=== PATIENT | female | born 1955 | race Caucasian/White ===

== ENCOUNTER 2017-02-15 18:04 | Observation (INO) ==
[2017-02-15] MEDS ORDERED: 0.9 % Sodium Chloride 1,000 ML IVC ONE (18:09)
--- NOTE | 2017-02-15 18:14 | Emergency Department Note ---
Disposition Clinical Impression: Syncope Disposition: Still a Patient Condition: Good Referrals: Latosha Wells MD [Primary Care Provider] - Forms: ED Satisfaction Letter General Adult HPI - General Chief complaint: ED Syncope Stated complaint: syncopal episode Time Seen by Provider: 02/15/17 18:08 Source: patient, EMS Limitations: no limitations Nursing Notes Reviewed: Yes Vital Signs Reviewed: Yes - History of Present Illness Pain Scale: 5 - Related Data Previous Rx's Medication Instructions Recorded Amoxicillin/Clavulanate [Augmentin] 875 mg PO BIDWM #14 tablet 09/11/15 Allergies Allergy/AdvReac Type Severity Reaction Status Date / Time morphine Allergy Hives Verified 09/11/15 14:09 naproxen [From Naprosyn] Allergy Nausea Verified 09/11/15 14:09 ivp dye Allergy Itching Uncoded 09/11/15 14:09 Past Medical History - Past Medical History Medical history: Reports: diabetes, other - Social History Smoking Status: Current every day smoker Smokeless Tobacco Status: No Alcohol use: Reports: none Drug use: Reports: none Physical Exam - General Limitations: no limitations General appearance: in no apparent distress, lethargic Course Vital Signs Temperature 98.2 F 02/15/17 18:06 Pulse Rate 86 02/15/17 18:06 Respiratory Rate 18 02/15/17 18:06 Blood Pressure 140/83 02/15/17 18:06 O2 Sat by Pulse Oximetry 96 02/15/17 18:06 Temperature 98.2 F 02/15/17 18:06 Pulse Rate 80 02/15/17 18:13 Respiratory Rate 18 02/15/17 18:13 Blood Pressure 140/83 02/15/17 18:13 O2 Sat by Pulse Oximetry 97 02/15/17 18:13 Oxygen Delivery Oxygen Delivery Room Air Medical Decision Making - MDM Narrative Medical decision making narrative: I examined this patient and my medical decision-making was reviewed with the ORGANIZATIONAL DEVELOPMENT CONSULTANT/PA/Advanced Practice Nurse/Resident Physician. I agree with the documented findings, disposition and treatment plan as described except to the extent set forth below. Patient was seen on arrival with EMS and Dr. Mauricio, I agree with his evaluation and management plan, supervised the care of the patient throughout the stay. Patient was out mowing the lawn today. She says she felt fine. This 84 degrees outside. She felt a little hot. She was syncopal episode. Family estimates she was down less than 15 minutes. She denies any weakness. She denies striking her head. She was in the grass when it occurred. She denies any chest pain. She says just generally she feels weak but no focal deficits GCS is 14 she is alert person [address] and time good upper and lower motor strength. This does not appear to be a stroke and is not a stroke alert at this time. A CT her head check lab work on her. Fluids and reassessed. She is in agreement with this plan. We will sign her out to the evening your physician Dr. Colon for further management and disposition. 1811 hrs.: EKG shows a sinus rhythm with a rate of 80, QRS is 85, QTc 413, no signs of ischemia, flip complexes in lead 3 with flattening in aVF, compared this with an EKG done in 2006 shows no changes except for rate. And the complexes were upright in lead 3.
--- NOTE | 2017-02-15 18:27 | Emergency Department Note ---
Disposition Clinical Impression: Syncope Qualifiers: Syncope type: unspecified Qualified Code(s): R55 - Syncope and collapse Disposition: Still a Patient Condition: Good Referrals: Latosha Wells MD [Primary Care Provider] - Forms: ED Satisfaction Letter Time of Disposition: 18:39 Syncope HPI - General Chief Complaint: ED Syncope Stated Complaint: syncopal episode Time Seen by Provider: 02/15/17 18:08 Source: patient, EMS Mode of arrival: ambulatory Limitations: no limitations Nursing Notes Reviewed: Yes Vital Signs Reviewed: Yes - History of Present Illness HPI Narrative: Patient is a 61-year-old female with past medical history of diabetes. She presents today due to an episode of syncope just prior to arrival. Family members are present with her and state that she has been outside all day, doing different task, he was mowing the lawn an then about 20 minutes after mowing the lawn, she was walking with her son and stated that she felt sick. Son states that she then collapsed, he caught her before she hit the ground. He denies her hitting her neck or head. She was "out and confused" for approximately 20 minutes per son. The patient herself says that she feels confused. She denies any numbness, tingling, weakness. She does admit to some mild neck pain but denies hitting her head or neck. Denies any other injuries. Denies chest pain, shortness of breath, nausea, vomiting, fevers, diarrhea, abdominal pain. She says she drank some water but "maybe not enough." - Related Data Previous Rx's Medication Instructions Recorded Amoxicillin/Clavulanate [Augmentin] 875 mg PO BIDWM #14 tablet 09/11/15 Allergies Allergy/AdvReac Type Severity Reaction Status Date / Time morphine Allergy Hives Verified 09/11/15 14:09 naproxen [From Naprosyn] Allergy Nausea Verified 09/11/15 14:09 ivp dye Allergy Itching Uncoded 09/11/15 14:09 All systems ED: reviewed and negative except as stated. Constitutional: Denies: fever Cardiovascular: Denies: chest pain, palpitations Respiratory: Denies: cough, dyspnea, wheezes Gastrointestinal: Denies: abdominal pain, nausea, vomiting, diarrhea Genitourinary: Denies: urgency, dysuria, frequency Musculoskeletal: Reports: neck pain. Denies: back pain, arthralgia, myalgia Integumentary: Denies: rash Neurological: Reports: other (syncope). Denies: headache, weakness, numbness, paresthesias Past Medical History - Past Medical History Attestation: Yes The following information was validated with the patient. Source: patient Medical history: Reports: diabetes, other - Social History Smoking Status: Current every day smoker Smokeless Tobacco Status: No Alcohol use: Reports: none Drug use: Reports: none Physical Exam - General Limitations: no limitations General appearance: in no apparent distress, other (listless) - Head Head exam: atraumatic, normocephalic, normal inspection - Eye Eye exam: Present: normal appearance, PERRL, EOMI - ENT ENT exam: mucous membranes dry - Neck Neck exam: Present: normal inspection, full ROM, trachea midline, tenderness ( mild tenderness of spinous processes and paraspinal muscles C3-C5 ) - Chest Chest inspection: Present: normal inspection, symmetric chest wall rise - Respiratory Respiratory exam: Present: normal lung sounds bilaterally. Absent: respiratory distress, wheezes - Cardiovascular Cardiovascular exam: Present: regular rate, normal rhythm, normal heart sounds - Abdominal Exam Abdominal exam: Present: soft, Non-Tender. Absent: tenderness, distention, guarding, rebound, rigidity - Extremities Exam Extremities exam: Present: normal inspection, full ROM. Absent: tenderness, pedal edema - Neurological Exam Neurological exam: Present: alert, oriented X3, CN II-XII intact. Absent: motor sensory deficit - Psychiatric Psychiatric exam: Present: normal mood, flat affect, other (mildly confused on exam) - Skin Skin exam: Present: warm, dry, intact, normal color Course Course Narrative: Patient vitals within normal limits my exam. Physical exam shows groggy patient , slow to answer questions. She has no focal neurologic deficits on exam. She does have some mild tenderness of the paraspinal muscles and spinous processes of C3-C5. No other injuries noted on exam. We will obtain altered mental status workup for the patient including a head CT and CT of the cervical spine. We will give fluids. Current concern for heat exhaustion/heat stroke but must also consider cardiac etiology. Will obtain trop and CXR, EKG. Patient signed out to night team, Dr. Colon, Dr. Freeman, Dr. Guevara for further care and dispo. Vital Signs Temperature 98.2 F 02/15/17 18:06 Pulse Rate 86 02/15/17 18:06 Respiratory Rate 18 02/15/17 18:06 Blood Pressure 140/83 02/15/17 18:06 O2 Sat by Pulse Oximetry 96 02/15/17 18:06 Temperature 98.2 F 02/15/17 18:06 Pulse Rate 80 02/15/17 18:13 Respiratory Rate 18 02/15/17 18:13 Blood Pressure 140/83 02/15/17 18:13 O2 Sat by Pulse Oximetry 97 02/15/17 18:13 Oxygen Delivery Oxygen Delivery Room Air Syncope - MDM Narrative Medical decision making narrative: Patient vitals within normal limits my exam. Physical exam shows groggy patient , slow to answer questions. She has no focal neurologic deficits on exam. She does have some mild tenderness of the paraspinal muscles and spinous processes of C3-C5. No other injuries noted on exam. We will obtain altered mental status workup for the patient including a head CT and CT of the cervical spine. We will give fluids. Current concern for heat exhaustion/heat stroke but must also consider cardiac etiology. Will obtain trop and CXR, EKG. Patient signed out to night team, Dr. Colon, Dr. Freeman, Dr. Guevara for further care and dispo. - Medical Records Medical records reviewed: Yes I reviewed the patient's medical records. S.BKarl - S.[email or web address].AFabi Situation: Demographics, MOA Background: Presenting Complaint, Relevant PMH, Meds, & Allergies Assessment: Vital Signs, Course and respsone to treatment, Exam Concerns, Patient/Family Expectation, Pertinant Lab Results, Outstanding Labs Recommendation: Barrier(s) to disposition, Recommendation based on pending studies, treatments, or consults S.B.Al Report Given to: Dr. Colon, Dr. Freeman S.Jeff Repor Time: 18:44
[2017-02-15 18:54] LABS: Basophils % 0.4 %; Eosinophils # 0.1 K/mcL (0.0-0.6); Eosinophils % 2.1 %; Hematocrit 34.3 % (35.3-44.9); Hemoglobin 11.4 g/dL (11.5-15.4); Immature Granulocytes % 0.4 % (0-4); Immature Platelets 9.1 % (1.1-6.1); Lymphocytes # 0.4 K/mcL (0.6-4.6); Lymphocytes % 15.5 %; Mean Corpuscular HGB Conc 33.2 g/dL (31.6-35.5); Mean Corpuscular Hemoglobin 30.2 pg (28.0-33.3); Mean Corpuscular Volume 90.7 fL (83.0-100.0); Monocytes # 0.1 K/mcL (0.0-1.3); Monocytes % 4.6 %; Red Blood Count 3.78 M/mcL (3.82-4.97); Red Cell Distribution Width 12.4 % (11.5-14.5)
[2017-02-15 18:56] LABS: Neutrophils # 1.9 K/mcL (1.6-8.9); Platelet Count 53 K/mcL (140-400)
[2017-02-15 19:08] LABS: Alanine Aminotransferase 25 Units/L (0-55); Albumin 3.4 g/dL (3.5-5.0); Albumin/Globulin Ratio 1.1 (1.1-2.2); Alkaline Phosphatase 60 Units/L (38-126); Aspartate Amino Transferase 33 Units/L (5-34); BUN/Creatinine Ratio 15 (6-26); Bilirubin,Total 1.8 mg/dL (0.2-1.2); Blood Urea Nitrogen 13 mg/dL (7-20); Calcium 8.9 mg/dL (8.6-10.8); Carbon Dioxide 25 mEq/L (19-29); Chloride 106 mEq/L (98-109); Globulin 3.2 g/dL (2.4-3.5); Glucose 248 mg/dL (70-99); Osmolality,Calculated 292 (280-300); Potassium 3.8 mEq/L (3.5-4.5); Sodium 137 mEq/L (136-145); Total Protein 6.6 g/dL (6.0-8.3); eGFR For African Americans > 60 (> 60); eGFR For Non-African Americans > 60 (> 60)
[2017-02-15 19:09] LABS: Ethanol < 10 mg/dL (0-10)
[2017-02-15 19:18] LABS: Platelet Estimate Decreased (Normal)
[2017-02-15 19:37] LABS: Bilirubin,Urine Negative (Negative); Blood,Urine Small (Negative); Clarity,Urine Clear (Clear); Color,Urine Yellow (Yellow); Glucose,Urine (UA) >=1000 mg/dL (Normal); Ketones,Urine Negative (Negative); Leukocyte Esterase,Urine Negative (Negative); Nitrite,Urine Negative (Negative); Protein,Urine Negative (Neg-Trace); Specific Gravity,Urine 1.017 (1.010-1.025); Urobilinogen,Urine Normal (Normal)
[2017-02-15 19:42] LABS: Bacteria,Urine None Seen per hpf (None-Few); Hyaline Casts,Urine None Seen per lpf (None-Few); RBC,Urine 0-3 per hpf (0-3); Squamous Epithelial Cell,Urine Many per lpf (None-Few); WBC,Urine 0-3 per hpf (0-3)
[2017-02-15 19:44] LABS: Amphetamine Screen,Urine Negative ng/mL (Cutoff=1000); Barbiturate Screen,Urine Negative ng/mL (Cutoff=200); Benzodiazepines Screen,Urine Negative ng/mL (Cutoff=200); Cannabinoid Screen,Urine Negative ng/mL (Cutoff = 50); Cocaine Screen,Urine Negative ng/mL (Cutoff= 300); Opiate Screen,Urine Negative ng/mL (Cutoff=300); Phencyclidine Screen,Urine Negative ng/mL (Cutoff=25)
[2017-02-15] MEDS ORDERED: Acetaminophen 325 MG TABLET PO PRN (20:43)
[2017-02-15] MEDS ORDERED: Dextrose Gel 15 GM PO PRN ×2 (20:43)
[2017-02-15] MEDS ORDERED: D5% in Water 1,000 ML IVC PRN (20:43)
[2017-02-15] MEDS ORDERED: Ondansetron 4 MG/2 ML VIAL IVP PRN (20:43)
[2017-02-15] MEDS ORDERED: *HR* Dextrose 50 % in Water (Syg) 50 ML SYRINGE IVP PRN (20:43)
[2017-02-15] MEDS ORDERED: Naloxone 0.4 MG/ML INJ IVP PRN (20:43)
[2017-02-15] MEDS ORDERED: 0.9 % Sodium Chloride 1,000 ML IVC SCH (20:45)
--- NOTE | 2017-02-15 20:49 | Internal Med History&Physical ---
Date of Encounter: 02/15/17 Time of Encounter: 20:47 Assessment and Plan (1) Syncope Current visit: Yes Status: Acute Syncopal episode of unclear etiology, consider dehydration and possible orthostatic hypotension Check orthostatics, fall precautions, continue telemetry Order an echocardiogram, confusion final reports of CT scan of the head and neck in order and MRI as she has a persistent vertigo and nystagmus Continue IV fluids and meclizine as needed Qualifiers: Syncope type: heat syncope Encounter type: initial encounter Qualified Code(s): T67.1XXA - Heat syncope, initial encounter (2) Cirrhosis Current visit: Yes Status: Acute Unclear etiology Resume lactulose, check ammonia level Qualifiers: Hepatic cirrhosis type: unspecified hepatic cirrhosis Ascites presence: without ascites Qualified Code(s): K74.60 - Unspecified cirrhosis of liver (3) Fungal dermatitis Current visit: Yes Status: Acute Left hand fingers show multiple excoriations Start nystatin cream (4) Chronic leukopenia Current visit: Yes Status: Acute Likely secondary to cirrhosis (5) Thrombocytopenia Current visit: Yes Status: Acute Likely secondary to cirrhosis (6) Diabetes Current visit: Yes Status: Acute Continue insulin sliding scale Confirm oral medications Famotidine for GI prophylaxis and sequential compression devices for DVT prophylaxis. Patient will be admitted for observation. She is a full code. Time spent on this admission 45 minutes. High risk for falling Qualifiers: Diabetes mellitus type: type 2 Diabetes mellitus complication status: without complication Diabetes mellitus senior care insulin use: without senior care use Qualified Code(s): E11.9 - Type 2 diabetes mellitus without complications Internal Medicine - H&P: HPI Chief complaint: Syncopal episode Admitted From: Emergency Dept History of present illness: Ms. Marsh is a 61 year old female with a past medical history of diabetes type 2 not insulin-dependent, cirrhosis, hypertension and hyperlipidemia who came to the emergency room after she collapsed while being outside of her home. The episode was witnessed by her son and the form what they are describing she was confused for about 20 minutes. Prior to these event he was feeling sick and easy denies any nausea or vomiting but complains of a bad pressure type of headache. They are performed a CT scan of the brain that apparently does not show any hemorrhage but the final report of the CT scan of the head and neck are not back yet. White blood cell count is 2.4 and platelets are 53 which both are chronically low likely secondary to cirrhosis. Blood pressure was 140/83. Orthostatics have not been done. She says that her step grandson has been sick with a stomach virus since last week. UA was unremarkable and she denies any dysuria. She complains of persistent dizziness and headache. Denies any fevers. Had a normal stress test in 01/27/2017. Her left fingers have been progressively getting worse over the past few days showing excoriations for which she received prednisone initially. She says she takes lactulose regularly and she is on 3 different oral diabetes medications and does not use any insulin. Past Med Surg Social Fam HX - Past Medical History Medical history: diabetes (Not insulin-dependent), other (Hypertension, hyperlipidemia, remote history of tobacco, cirrhosis with portal vein hypertension) - Past Surgical History Surgical History: cholecystectomy, other (Right hip surgery) - Social History Smoking Status: Former smoker Smokeless Tobacco Status: No Alcohol use: none Drug use: none - Additional Family History Additional family history: Mother with CVA, cervical cancer, CAD, father with CAD Internal Medicine - H&P: Meds Amoxicillin/Clavulanate [Augmentin] 875 mg PO BIDWM #14 tablet 09/11/15 [Rx] Allergies morphine Allergy (Verified 09/11/15 14:09) Hives naproxen [From Naprosyn] Allergy (Verified 09/11/15 14:09) Nausea ivp dye Allergy (Uncoded 09/11/15 14:09) Itching All Systems PM: A 10-system review of systems was performed and is negative for pertinent findings except as documented above in the HPI. Review of systems: Feels dizzy, complains of severe headache and pressure-like 8 out of 10. Knows any abdominal pain, no dysuria. Other systems out of the 10 reviewed are negative - Constitutional Vitals: Temp Pulse Resp BP Pulse Ox 98.2 F 84 12 151/91 98 02/15/17 18:06 02/15/17 20:26 02/15/17 20:26 02/15/17 20:26 02/15/17 20:26 General appearance: Present: A&O X 3 - Head Head exam: Present: atraumatic, normocephalic Additional comments: Nystagmus present - Eye Eye exam: Present: PERRL, conjuntiva pink, sclera anicteric Pupils: Present: PERRL - Neck Neck exam general surgery: Present: supple, trachea midline. Absent: lymphadenopathy - Respiratory Respiratory exam: Present: CTAB. Absent: accessory muscle use, rales, rhonchi, wheezes - Cardiovascular Cardiovascular exam: Present: RRR, +S1, +S2. Absent: diastolic murmur, gallop, rubs, systolic murmur - GI/Abdominal GI/Abdominal exam: Present: normal bowel sounds, soft, no peritoneal signs. Absent: distended, tenderness - Extremities Exam Extremities exam: Present: warm, radial pulses palpable and symetrical. Absent : calf tenderness, cyanotic, pedal edema - Neurological Exam Neurological exam: Present: CN II-XII intact, oriented X3, no focal deficits. Absent: pronater drift, facial droop, speech deficit - Skin Skin exam: Present: dry, intact Internal Med - H&P Results - Labs CBC & Chem 7: 02/15/17 18:44 02/15/17 18:44 Labs: Short CBC 02/15/17 Range/Units 18:44 WBC 2.4 L (4.3-11.1) K/mcL Hgb 11.4 L (11.5-15.4) g/dL Hct 34.3 L (35.3-44.9) % Plt Count 53 L (140-400) K/mcL Neutrophils # 1.9 (1.6-8.9) K/mcL BMP 02/15/17 18:44 Sodium 137 Potassium 3.8 Chloride 106 Carbon Dioxide 25 BUN 13 Creatinine 0.87 Glucose 248 H Calcium 8.9 Cardiac Enzymes 02/15/17 Range/Units 18:44 Troponin I 0.00 (0-0.03) ng/mL Liver Function 02/15/17 Range/Units 18:44 Total Bilirubin 1.8 H (0.2-1.2) mg/dL AST 33 (5-34) Units/L ALT 25 (0-55) Units/L Alkaline Phosphatase 60 (38-126) Units/L Albumin 3.4 L (3.5-5.0) g/dL Urine 02/15/17 Range/Units 19:32 Urine Color Yellow (Yellow) Urine Clarity Clear (Clear) Urine pH 6.0 (5.0-8.0) pH Units Ur Specific Crosby 1.017 (1.010-1.025) Urine Protein Negative (Neg-Trace) mg/dL Urine Glucose (UA) >=1000 H (Normal) mg/dL - Impressions ITS Impressions Chest X-Ray 02/15/17 18:08 IMPRESSION: No acute findings D/ / Madisyn Last MD / Madisyn Last MD Interpreting Provider: Madisyn Last MD
--- NOTE | 2017-02-15 20:49 | Emergency Department Note ---
Disposition Clinical Impression: Syncope Qualifiers: Syncope type: heat syncope Encounter type: initial encounter Qualified Code(s) : T67.1XXA - Heat syncope, initial encounter Disposition: Admitted As Inpatient Condition: Good Referrals: Latosha Wells MD [Primary Care Provider] - Forms: ED Satisfaction Letter Time of Disposition: 20:53 General Adult HPI - General Chief complaint: ED Syncope Stated complaint: syncopal episode Time Seen by Provider: 02/15/17 18:08 Source: patient, EMS Mode of arrival: ambulatory Limitations: no limitations - History of Present Illness Pain Scale: 5 - Related Data Previous Rx's Medication Instructions Recorded Amoxicillin/Clavulanate [Augmentin] 875 mg PO BIDWM #14 tablet 09/11/15 Allergies Allergy/AdvReac Type Severity Reaction Status Date / Time morphine Allergy Hives Verified 09/11/15 14:09 naproxen [From Naprosyn] Allergy Nausea Verified 09/11/15 14:09 ivp dye Allergy Itching Uncoded 09/11/15 14:09 Constitutional: Denies: fever Cardiovascular: Denies: chest pain, palpitations Respiratory: Denies: cough, dyspnea, wheezes Gastrointestinal: Denies: abdominal pain, nausea, vomiting, diarrhea Genitourinary: Denies: urgency, dysuria, frequency Musculoskeletal: Reports: neck pain. Denies: back pain, arthralgia, myalgia Integumentary: Denies: rash Neurological: Reports: other (syncope). Denies: headache, weakness, numbness, paresthesias Past Medical History - Past Medical History Medical history: Reports: diabetes, other - Social History Smoking Status: Current every day smoker Smokeless Tobacco Status: No Alcohol use: Reports: none Drug use: Reports: none Physical Exam - General Limitations: no limitations General appearance: in no apparent distress, lethargic Course Course Narrative: Patient was signed out at the beginning of my shift. Detailed review the presentation symptoms of medical intervention were reviewed. Patient had what appears to be a syncopal event for approximately 20 minutes at home after working outside. Family was concerned brought her in for evaluation. She did not fall and hit the ground. No specific head trauma at this time. Some of it caught her when she started to have the event. Patient describes tunnel vision and feeling lightheaded when she went to pass out. Otherwise patient denied chest pain shortness of breath headache vision changes nausea vomiting or diarrhea prior to that timeframe. Denies fevers or chills. 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 Patient has been provided with fluids labs were reviewed and she has stable labs at this time vital signs did not show any abnormality. Patient was initially thought to be a heat-related issue secondary to dehydration and symptom presentation. My concern is that this was a prolonged syncopal event of unknown etiology with no specific change in mental status or symptom presentation after intervention here in the emergency room. I did a repeat cerebellar and neurologic evaluation here in the ED with no other acute findings. Cerebellar function appears to be stable and normal. We will continue to monitor as imaging is resulted and urinalysis Is completed. Otherwise no other acute pathology at this time patient stated resting comfortably in the bed. Expected admitted after imaging is completed - Reevaluation(s) Reevaluation #1: Patient on my review had negative CT of the head and cervical spine. She denied any head trauma or cervical injury. Low likelihood of issue this time. Admission process completed with review with Dr. Triana. He had no other recommendations at this time. Patient be brought in for prolonged syncopal event of unknown etiology and concern for vertigo-like symptoms. Patient is stable upon the findings. She is resting comfortably in the bed no distress. Imaging official reads are pending at this time. Symptoms and treatment course will be completed here in the emergency room. Definitive imaging reasons will be resulted. Patient will be admitted after that is completed.. Time: 20:48 Vital Signs Temperature 98.2 F 02/15/17 18:06 Pulse Rate 86 02/15/17 18:06 Respiratory Rate 18 02/15/17 18:06 Blood Pressure 140/83 02/15/17 18:06 O2 Sat by Pulse Oximetry 96 02/15/17 18:06 Temperature 98.2 F 02/15/17 18:06 Pulse Rate 84 02/15/17 20:26 Respiratory Rate 12 02/15/17 20:26 Blood Pressure 151/91 02/15/17 20:26 O2 Sat by Pulse Oximetry 98 02/15/17 20:26 Oxygen Delivery Oxygen Delivery Room Air Medical Decision Making - MDM Narrative Medical decision making narrative: Syncope, vertigo-like symptoms, altered mental status - Medical Records Medical records reviewed: Yes I reviewed the patient's medical records. - Lab Data Lab results reviewed: Yes I reviewed the patient's lab results. Result diagrams: 02/15/17 18:44 02/15/17 18:44 Lab Results 02/15/17 02/15/17 02/15/17 Range/Units 18:44 18:44 18:44 WBC 2.4 L (4.3-11.1) K/mcL RBC 3.78 L (3.82-4.97) M/mcL Hgb 11.4 L (11.5-15.4) g/dL Hct 34.3 L (35.3-44.9) % MCV 90.7 (83.0-100.0) fL MCH 30.2 (28.0-33.3) pg MCHC 33.2 (31.6-35.5) g/dL RDW 12.4 (11.5-14.5) % Plt Count 53 L (140-400) K/mcL MPV 12.0 (9.4-12.4) fL Immature Gran % 0.4 (0-4) % Seg Neutrophils % 77.0 % Lymphocytes % 15.5 % Monocytes % 4.6 % Eosinophils % 2.1 % Basophils % 0.4 % Neutrophils # 1.9 (1.6-8.9) K/mcL Lymphocytes # 0.4 L (0.6-4.6) K/mcL Monocytes # 0.1 (0.0-1.3) K/mcL Eosinophils # 0.1 (0.0-0.6) K/mcL Basophils # 0.0 (0.0-0.2) K/mcL Platelet Estimate Decreased L (Normal) Immature Plt Fraction 9.1 H (1.1-6.1) % D-Dimer 453 (0-500) ng/mLFEU Sodium 137 (136-145) mEq/L Potassium 3.8 (3.5-4.5) mEq/L Chloride 106 (98-109) mEq/L Carbon Dioxide 25 (19-29) mEq/L BUN 13 (7-20) mg/dL Creatinine 0.87 (0.57-1.11) mg/dL Est GFR ( Amer) > 60 (> 60) Est GFR (Non-Af Amer) > 60 (> 60) BUN/Creatinine Ratio 15 (6-26) Glucose 248 H (70-99) mg/dL Calculated Osmolality 292 (280-300) Calcium 8.9 (8.6-10.8) mg/dL Total Bilirubin 1.8 H (0.2-1.2) mg/dL AST 33 (5-34) Units/L ALT 25 (0-55) Units/L Alkaline Phosphatase 60 (38-126) Units/L Troponin I (0-0.03) ng/mL Serum Total Protein 6.6 (6.0-8.3) g/dL Albumin 3.4 L (3.5-5.0) g/dL Globulin 3.2 (2.4-3.5) g/dL Albumin/Globulin Ratio 1.1 (1.1-2.2) Urine Color (Yellow) Urine Clarity (Clear) Urine pH (5.0-8.0) pH Units Ur Specific [place] (1.010-1.025) Urine Protein (Neg-Trace) mg/dL Urine Glucose (UA) (Normal) mg/dL Urine Ketones (Negative) mg/dL Urine Blood (Negative) Urine Nitrite (Negative) Urine Bilirubin (Negative) Urine Urobilinogen (Normal) mg/dL Ur Leukocyte Esterase (Negative) Urine Microscopic RBC (0-3) per hpf Urine Microscopic WBC (0-3) per hpf Ur Squamous Epith Cells (None-Few) per lpf Urine Bacteria (None-Few) per hpf Hyaline Casts (None-Few) per lpf Ur Culture Indicated? (NO) Urine Opiates Screen (Reughr=957) ng/mL Ur Barbiturates Screen (Tmtkay=121) ng/mL Ur Phencyclidine Scrn (Cutoff=25) ng/mL Ur Amphetamines Screen (Qxwmjo=0331) ng/mL U Benzodiazepines Scrn (Qslxtq=967) ng/mL Urine Cocaine Screen (Cutoff= 300) ng/mL U Marijuana (THC) Screen (Cutoff = 50) ng/mL Ethyl Alcohol < 10 (0-10) mg/dL 02/15/17 02/15/17 02/15/17 Range/Units 18:44 19:32 19:32 WBC (4.3-11.1) K/mcL RBC (3.82-4.97) M/mcL Hgb (11.5-15.4) g/dL Hct (35.3-44.9) % MCV (83.0-100.0) fL MCH (28.0-33.3) pg MCHC (31.6-35.5) g/dL RDW (11.5-14.5) % Plt Count (140-400) K/mcL MPV (9.4-12.4) fL Immature Gran % (0-4) % Seg Neutrophils % % Lymphocytes % % Monocytes % % Eosinophils % % Basophils % % Neutrophils # (1.6-8.9) K/mcL Lymphocytes # (0.6-4.6) K/mcL Monocytes # (0.0-1.3) K/mcL Eosinophils # (0.0-0.6) K/mcL Basophils # (0.0-0.2) K/mcL Platelet Estimate (Normal) Immature Plt Fraction (1.1-6.1) % D-Dimer (0-500) ng/mLFEU Sodium (136-145) mEq/L Potassium (3.5-4.5) mEq/L Chloride (98-109) mEq/L Carbon Dioxide (19-29) mEq/L BUN (7-20) mg/dL Creatinine (0.57-1.11) mg/dL Est GFR ( Amer) (> 60) Est GFR (Non-Af Amer) (> 60) BUN/Creatinine Ratio (6-26) Glucose (70-99) mg/dL Calculated Osmolality (280-300) Calcium (8.6-10.8) mg/dL Total Bilirubin (0.2-1.2) mg/dL AST (5-34) Units/L ALT (0-55) Units/L Alkaline Phosphatase (38-126) Units/L Troponin I 0.00 (0-0.03) ng/mL Serum Total Protein (6.0-8.3) g/dL Albumin (3.5-5.0) g/dL Globulin (2.4-3.5) g/dL Albumin/Globulin Ratio (1.1-2.2) Urine Color Yellow (Yellow) Urine Clarity Clear (Clear) Urine pH 6.0 (5.0-8.0) pH Units Ur Specific [place] 1.017 (1.010-1.025) Urine Protein Negative (Neg-Trace) mg/dL Urine Glucose (UA) >=1000 H (Normal) mg/dL Urine Ketones Negative (Negative) mg/dL Urine Blood Small H (Negative) Urine Nitrite Negative (Negative) Urine Bilirubin Negative (Negative) Urine Urobilinogen Normal (Normal) mg/dL Ur Leukocyte Esterase Negative (Negative) Urine Microscopic RBC 0-3 (0-3) per hpf Urine Microscopic WBC 0-3 (0-3) per hpf Ur Squamous Epith Cells Many H (None-Few) per lpf Urine Bacteria None Seen (None-Few) per hpf Hyaline Casts None Seen (None-Few) per lpf Ur Culture Indicated? NO (NO) Urine Opiates Screen Negative (Zkgoeo=020) ng/mL Ur Barbiturates Screen Negative (Uraxfu=983) ng/mL Ur Phencyclidine Scrn Negative (Cutoff=25) ng/mL Ur Amphetamines Screen Negative (Xqkvdt=7834) ng/mL U Benzodiazepines Scrn Negative (Qqgdtf=142) ng/mL Urine Cocaine Screen Negative (Cutoff= 300) ng/mL U Marijuana (THC) Screen Negative (Cutoff = 50) ng/mL Ethyl Alcohol (0-10) mg/dL - Radiology Data Radiology results reviewed: Yes I reviewed the patient's radiology results. Chest x-ray is negative. CT of the head and cervical spine appear to be negative based on my review. - EKG Data EKG #1 EKG attestation: Yes I reviewed and interpreted this EKG. EKG shows normal: sinus rhythm, axis, intervals, QRS complexes, ST-T waves Rate: normal Rhythm: NSR [place]/QRS: normal When compared to previous EKG there are: no significant changes Interpretation: normal EKG Attestation Statement - Attestation Attestation: I, Huber Colon MD, personally performed a history and physical exam of the patient and discussed their management with the resident. I reviewed the resident's note and agree with the documented findings, medical decision making , and plan of care. This patient was signed out at shift change from Dr. Mccann and Dr. Goins. Please refer to their notes for complete details of the history and physical examination. Patient presented after a syncopal episode. She continues to complain of some burning occipital headache and pain down into her neck. She did not fall or injure herself when she passed out. Prior history of syncope. No chest pain or palpitations or shortness of breath. Examination patient is a well-developed well-nourished female in no acute distress. She is alert and oriented 3 but seems a little drowsy and slow to respond. There is no cyanosis or diaphoresis. Breath sounds are clear and equal bilaterally. Heart regular rate and rhythm. Abdomen soft and nontender with normal bowel sounds. No gross focal neurological deficits. CT of the head and cervical spine was negative for any acute abnormality. The hospitalist, Dr. Triana, was consulted and accepted admission of the patient.
[2017-02-15] MEDS ORDERED: Insulin LISPRO 300 UNITS/3 ML VIAL SQ SCH (21:00)
[2017-02-15 21:03] LABS: INR 1.1; Prothrombin Time 12.3 Seconds (9.4-12.1)
[2017-02-15] MEDS: Lactulose Oral Soln 20 GM/30 ML UDC PO SCH (22:41)
[2017-02-15] MEDS: Aspirin 81 MG TAB.CHEW PO SCH (22:41)
[2017-02-15] MEDS: Famotidine 20 MG TABLET PO SCH (22:41)
[2017-02-15] MEDS: Nystatin Cream 15 GM TUBE TP SCH (22:43)
[2017-02-15] MEDS: Insulin LISPRO 300 UNITS/3 ML VIAL SQ SCH (23:11)
[2017-02-16] MEDS ORDERED: *HR* OxyCODONE/APAP 5/325 TABLET PO ONE (00:02)
[2017-02-16] MEDS: *HR* Heparin 5,000 UNIT/ML VIAL SQ SCH ×2 (00:27→08:40)
[2017-02-16 02:55] LABS: Hemoglobin 10.6 g/dL (11.5-15.4)
[2017-02-16 02:57] LABS: Hematocrit 32.4 % (35.3-44.9); Immature Platelets 9.3 % (1.1-6.1); Mean Corpuscular HGB Conc 32.7 g/dL (31.6-35.5); Mean Corpuscular Hemoglobin 29.9 pg (28.0-33.3); Mean Corpuscular Volume 91.3 fL (83.0-100.0); Red Blood Count 3.55 M/mcL (3.82-4.97)
[2017-02-16 03:11] LABS: BUN/Creatinine Ratio 15 (6-26); Blood Urea Nitrogen 12 mg/dL (7-20); Calcium 8.8 mg/dL (8.6-10.8); Carbon Dioxide 24 mEq/L (19-29); Chloride 109 mEq/L (98-109); Chol/HDL Ratio 3.4 (0-4.9); Cholesterol 155 mg/dL (< 200); Glucose 259 mg/dL (70-99); HDL Cholesterol 46 mg/dL (40-59); LDL Cholesterol,Calculated 92 mg/dL (0-99); Osmolality,Calculated 297 (280-300); Potassium 4.2 mEq/L (3.5-4.5); Sodium 139 mEq/L (136-145); Triglycerides 84 mg/dL (< 150); eGFR For African Americans > 60 (> 60); eGFR For Non-African Americans > 60 (> 60)
[2017-02-16] MEDS: Insulin LISPRO 300 UNITS/3 ML VIAL SQ SCH ×2 (08:40→12:16)
[2017-02-16] MEDS: Aspirin 81 MG TAB.CHEW PO SCH (08:40)
[2017-02-16] MEDS: Lactulose Oral Soln 20 GM/30 ML UDC PO SCH (08:40)
[2017-02-16] MEDS: Famotidine 20 MG TABLET PO SCH (08:40)
[2017-02-16] MEDS: Nystatin Cream 15 GM TUBE TP SCH (08:42)
[2017-02-16 11:33] VITALS: BP 104/67
--- NOTE | 2017-02-16 11:54 | ECHO - Doppler Report ---
Echocardiogram Name: Betzy Marsh Date of Study: 02/16/2017 Date: 1955 Ht: 66.0 in Medical Record#: [id number] Age: 61 Wt: 180.0 lb Gender: Female BSA: 1.91 Order #: [id number] Location: [facility] Room #: 3B32 Reading Physician: Andrey Parks MD, [facility] Senior Software Analyst: Archana Callahan RDCS, T Ordering Physician: Austyn Spears MD Primary Physician: Latosha Wells MD Indications: Syncope Impressions: LVEF 55-60%. No pulmonary hypertension. No significant valvular dysfunction. Left Ventricular Wall Motion: Rest Echo Findings All wall segments showed normal motion. Findings: Study Quality * Technically adequate exam. Right Ventricle * Normal right ventricular structure and function. Left Atrium * Normal left atrial size. Right Atrium * Normal right atrial size. Aortic Valve * Trileaflet aortic valve with normal function. Mitral Valve * Normal mitral valve structure and function. Interatrial Septum * No evidence of PFO by color Doppler. Aorta * Normally sized aortic root. Pericardium * The pericardium appears normal. ECG Findings * Normal sinus rhythm. Left Ventricle * LVEF 55-60%. * Normal LV chamber size, wall thickness and function. * Normal left ventricular diastolic function. * No segmental dysfunction. Tricuspid Valve * Mild tricuspid regurgitation. * No tricuspid stenosis. * Estimated RVSP is 31 mmHg. * Estimated RA pressure is 3-5 mmHg. * No pulmonary hypertension. Pulmonic Valve * No pulmonic regurgitation. * No pulmonic stenosis. IVC * Normal IVC dimensions and inspiratory collapse. History Hypertension Diabetes Hypercholesteremia Family History of CAD Measurements: BP: 105/ 65 2D Normal Values IVSd: .90 cm 0.6 - 1.0 cm LVIDd: 5.20 cm 3.7 - 5.6 cm LVPWd: .90 cm 0.6 - 1.1 cm LVIDs: 4.10 cm 1.5 - 3.6 cm AO: 2.40 cm < 4.0 cm LA: 3.40 cm 2.0 - 4.0cm %FS: 21.20 cm >25 % LA volume: 85 Mitral Valve Peak E:.90 m/sec Peak A:1.05 m/sec E/A Ratio:0.9 Peak E' Lat Khari:11.6 cm/s Peak E' Med Khari:7.41 cm/s E/E' Lat Ratio:7.8 E/E' Med Ratio:12.2 Tricuspid Valve TV Regurg Peak Grad: 31.00mmHg TV Regurg Peak Khari: 2.80m/sec Updated by Andrey Parks MD, [facility] on 02/16/2017 11:48:30 AM electronically signed on 02/16/2017 11:49:18 AM with status of Final Wall Motion Hurt: 1=Normal, 2=Hypokinesis, 3=Akinesis, 4=Dyskinesis, 5=Aneurysmal, 6=Hyperkinetic, X=Not Visualized (Blank)=Missing
--- NOTE | 2017-02-16 13:51 | Discharge Summary ---
Date of Encounter: 02/16/17 Time of Encounter: 10:30 - Discharge Diagnosis (1) Syncope Priority: Primary Status: Acute Comments: Patient reports watching TV yesterday and beginning to feel sick. She was unable to really describe what segment, but she said she just did not feel right. She reported a pressure in her head and neck and burning in her head and neck and feeling lightheaded. She denied vision changes or nausea and vomiting she went outside to try to find her to tell him that she did not feel well and started to have a syncopal episode and was cut by her nephew. Family said that she laid down outside for about 20 minutes and was breathing but had her eyes closed. She was not improving and was not responding to them. It lasted for about 20 minutes. She says that about an hour to an hour and half before this episode she noted the grafts. She says after she mowed she came inside and drinking 2 large glasses of ice water. She currently denies dizziness but states that she does have pressure behind both of her eyes. She has a history of migraines in the past but has not had one for several years. She says this is a different presentation. Patient denies chest pain and says all symptoms have resolved. In addition to the pressure and burning in her neck it initially started out with right posterior neck stiffness then the pressure and burning began. She said she could not move her head and then stiffness began. Recent vitals have remained stable throughout the visit. Patient has chronic leukopenia and thrombocytopenia. She remains at baseline. This is most likely due to chronic cirrhosis. Her ammonia level is 36 and within normal limits. Patient had a head and brain MRI without contrast last night, no acute infarct. There is a left mastoid effusion. Patient denies pain with palpation, or vision changes, or recent URI rhinorrhea. Patient had echo today showed LVEF of 55-60%, no pulmonary hypertension, no significant valvular dysfunction. Normal right ventricular structure and function no evidence of PFO normal LV chamber size, normal left ventricular diastolic function, mild TR, no IN. Patient denies any symptoms and is anxious to get home for [facility] with her family. She says she will follow-up with her primary care physician after she is discharged. 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: without fpc use Qualified Code(s): E11.9 - Type 2 diabetes mellitus without complications (3) Cirrhosis Priority: Secondary Status: Acute Qualifiers: Hepatic cirrhosis type: unspecified hepatic cirrhosis Ascites presence: without ascites Qualified Code(s): K74.60 - Unspecified cirrhosis of liver (4) Fungal dermatitis Priority: Secondary Status: Acute (5) Chronic leukopenia Priority: Secondary Status: Chronic (6) Thrombocytopenia Priority: Secondary Status: Chronic - Discharge Medications Prescriptions: Meclizine [Antivert] 25 mg PO Q8H PRN #15 tablet PRN Reason: Dizziness Home Medications: Atorvastatin [Lipitor] 10 mg PO HS 02/15/17 [History] Gabapentin [Neurontin] 600 mg PO TID 02/15/17 [History] Glimepiride [Amaryl] 4 mg PO DAILY 02/15/17 [History] Linagliptin [Tradjenta] 5 mg PO DAILY 02/15/17 [History] Lisinopril [Zestril] 20 mg PO DAILY 02/15/17 [History] Nadolol 20 mg PO DAILY 02/15/17 [History] Oxycodone HCl [Oxycontin] 20 mg PO TID 02/15/17 [History] Albuterol Neb [Proventil Neb] 2.5 mg IH TID PRN 02/16/17 [History] Albuterol Sulfate [Albuterol Inhaler] 2 puff PO Q4H PRN 02/16/17 [History] Budesonide/Formoterol 160/4.5 [Symbicort 160/4.5] 2 puff IH BIDR 02/16/17 [ History] Cyanocobalamin (Vitamin B-12) [Vitamin B12] 1,000 mcg PO DAILY 02/16/17 [History ] Esomeprazole Magnesium [Nexium] 20 mg PO DAILY 02/16/17 [History] Meclizine [Antivert] 25 mg PO Q8H PRN #15 tablet 02/16/17 [Rx] Metformin HCl [Metformin HCl ER] 500 mg PO TID 02/16/17 [History] Nystatin Cream [Mycostatin Cream] 1 appl TP TID #0 tube 02/16/17 [Rx] OxyCODONE Immed Rel [Roxicodone 5 MG] 5 mg PO TID PRN 02/16/17 [History] Allergies/Adverse Reactions: Allergies morphine Allergy (Verified 02/16/17 11:20) Hives naproxen [From Naprosyn] Allergy (Verified 02/16/17 11:20) Nausea ivp dye Allergy (Uncoded 09/11/15 14:09) Itching Date of admission: 02/15/17 20:57 Primary care physician: Latosha Wells Discharging clinician: Archana Mock Anticipated date of discharge: 02/16/17 - Patient Status Disposition: Home, Self-Care Functional capacity at discharge: independent ambulation Overall status at discharge: patient is back to baseline - Discharge Instructions Follow Up With: Latosha Wells MD [Primary Care Provider] - Additional Instructions: Take your Meclizine if you are dizzy. Do not drive or do anything that requires you to be alert if you are dizzy. Drink plenty of water and get plenty of rest Make sure that you are not taking more pain medication than necessary Follow up with your primary care physician within the next week for a follow up visit. REturn to the ER if you have any other problems or concerns or if your condition changes. - Diet and Activity Activity: increase activity as tolerated Diet: advance to your usual diet Hospital course: Ms. Marsh is a 61 year old female with a past medical history of diabetes, cirrhosis, hypertension, and hyperlipidemia who presented to the emergency room after she had a syncopal episode yesterday. Patient says that she did not feel well inside, she is unable to quantify that statement. She says she just does not feel right. It began with stiffness to her right posterior neck which progressed to burning in the back of her neck and pressure all over her head. She denied vision changes or nausea and vomiting. She was lightheaded. She went outside to find her and began to have a syncopal episode was, but her nephew. The patient was lying on the ground outside surrounded by family breathing, with her eyes closed, not moving any extremities, and not responding to family for about 20 minutes. About an hour to an hour and half prior to this episode she mowed her grass. Afterwards she went inside and drink 2 large glasses of ice water. Patient relates a past history of migraines, she has not had one in a while, and says that this is a different presentation. No dizziness or chest pain today, just reports pressure behind both eyes. She does not smoke, use alcohol, or any recreational drugs. Her mother of cardiac disease, and she is not exactly sure how her father but states that he had pneumonia for the last few months of his life. MRI in the emergency room last night was negative for infarct. There is a left mastoid effusion with no symptoms. There are minimal nonspecific periventricular and subcortical white matter signal changes, statistically present on the basis of chronic white matter microvascular ischemic disease. Head CT showed no acute intracranial hemorrhage, mass effect or midline shift. Echocardiogram was done today shows LVEF of 55-60%, no pulmonary hypertension or valvular dysfunction. Normal LV chamber size and normal left ventricular diastolic function. Patient has chronic cirrhosis, takes lactulose at home, ammonia levels within normal limits. She states that it is from fatty liver and damage from metformin. Patient is diabetic she has a large amount of glucose in her urine she will continue her normal home medications at home. Patient is expecting a large family For Maribel today, she says she feels fine and is ready to go home. Patient is stable for discharge. She agrees to follow -up with primary care physician in the following week - Time Spent with Patient Total time spent providing and/or coordinating discharge services: - Constitutional Vitals: Temp Pulse Resp BP Pulse Ox 97.6 F 85 17 104/67 98 02/16/17 11:33 02/16/17 11:33 02/16/17 11:33 02/16/17 11:33 02/16/17 11:33 General appearance: Present: cooperative, A&O X 3, pleasant, answers questions appropriately - Head Head exam: Present: normal inspection - Expanded Head Exam Head exam expanded: Absent: contusion, general tenderness, hematoma, tenderness of temporal artery - Eye Eye exam: Present: normal appearance, PERRL, conjuntiva pink. Absent: nystagmus , periorbital tenderness - ENT ENT exam: Present: mucous membranes moist, normal exam - Neck Neck exam general surgery: Present: normal inspection. Absent: lymphadenopathy , tenderness - Respiratory Respiratory exam: Present: CTAB. Absent: chest wall tenderness, rales, respiratory distress, rhonchi, stridor, wheezes, tachypnea - Cardiovascular Cardiovascular exam: Present: RRR, +S1, +S2. Absent: diastolic murmur, systolic murmur - GI/Abdominal GI/Abdominal exam: Present: normal bowel sounds, soft. Absent: hepatomegaly, tenderness - Extremities Exam Extremities exam: Present: normal capillary refill, normal inspection, warm, radial pulses palpable and symetrical. Absent: pedal edema, tenderness - Neurological Exam Neurological exam: Present: alert, oriented X3, no focal deficits, strengths equal and symetr throughout. Absent: facial droop, speech deficit
--- NOTE | 2017-02-17 09:28 | Electrocardiograph Report ---
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
== END 2017-02-16 14:39 | disposition home or self-care (01) ==
LOC: 3BNU 18:04 → EMEROO 18:04 → 3BNU 21:55
PROVIDERS: ADMIT Internal Medicine; ATTEND Registered Nurse

== ENCOUNTER 2017-03-09 13:46 | Inpatient (IN) ==
--- NOTE | 2017-03-09 14:03 | Emergency Department Note ---
Disposition Clinical Impression: Abnormal EKG, Severe sepsis, Thrombocytopenia, Pneumonia, Diabetes, Frail elderly, COPD (chronic obstructive pulmonary disease) Disposition: Admitted As Inpatient Referrals: Latosha Wells MD [Primary Care Provider] - Forms: ED Satisfaction Letter General Adult HPI - General Chief complaint: ED Chest Pain Stated complaint: fever, chest pain Time Seen by Provider: 03/09/17 14:00 Source: patient, family Limitations: no limitations - History of Present Illness HPI Narrative: 61-year-old female reports emergency department complaining of weakness and chest pain. She has a history of COPD and diabetes. The patient reports she has chest pain when breathing in and out, she coughs or breathes in and out it hurts her right chest, this also happens when coughing she has been coughing a lot. There is no history of leg swelling or pain or coughing of blood no syncope. She has vomited a few times nonbloody, no abdominal pain or diarrhea. The patient has had no rashes confusion headache neck stiffness or convulsion. No trouble moving her arms or legs independently. No slurred speech or unilateral arm weakness or numbness. No skin rashes or urinary problems. There is no history of confusion. The patient does not usually wear oxygen. She denies any cardiovascular disease CHF CAD or previous PE. She describes a very mild headache. There is no history of neck stiffness or rash. No falls or injuries. She reports she has been feeling poorly over the last few days. Pain Scale: 7 - Related Data Home Medications Medication Instructions Recorded Confirmed Atorvastatin [Lipitor] 10 mg PO HS 02/15/17 02/16/17 Gabapentin [Neurontin] 600 mg PO TID 02/15/17 02/16/17 Glimepiride [Amaryl] 4 mg PO DAILY 02/15/17 02/16/17 Linagliptin [Tradjenta] 5 mg PO DAILY 02/15/17 02/16/17 Lisinopril [Zestril] 20 mg PO DAILY 02/15/17 02/16/17 Nadolol 20 mg PO DAILY 02/15/17 02/16/17 Oxycodone HCl [Oxycontin] 20 mg PO TID 02/15/17 02/16/17 Albuterol Neb [Proventil Neb] 2.5 mg IH TID PRN 02/16/17 02/16/17 Albuterol Sulfate [Albuterol 2 puff PO Q4H PRN 02/16/17 02/16/17 Inhaler] Budesonide/Formoterol 160/4.5 2 puff IH BIDR 02/16/17 02/16/17 [Symbicort 160/4.5] Cyanocobalamin (Vitamin B-12) 1,000 mcg PO DAILY 02/16/17 02/16/17 [Vitamin B12] Esomeprazole Magnesium [Nexium] 20 mg PO DAILY 02/16/17 02/16/17 Metformin HCl [Metformin HCl ER] 500 mg PO TID 02/16/17 02/16/17 OxyCODONE Immed Rel [Roxicodone 5 5 mg PO TID PRN 02/16/17 02/16/17 MG] Previous Rx's Medication Instructions Recorded Meclizine [Antivert] 25 mg PO Q8H PRN #15 tablet 02/16/17 Nystatin Cream [Mycostatin Cream] 1 appl TP TID #0 tube 02/16/17 Allergies Allergy/AdvReac Type Severity Reaction Status Date / Time morphine Allergy Hives Verified 02/16/17 11:20 naproxen [From Naprosyn] Allergy Nausea Verified 02/16/17 11:20 ivp dye Allergy Itching Uncoded 09/11/15 14:09 All systems ED: reviewed and negative except as stated. Past Medical History - Past Medical History Medical history: Reports: diabetes, hypertension, other Surgical history: Reports: cholecystectomy, other - Social History Smoking Status: Former smoker Smokeless Tobacco Status: No Alcohol use: Reports: none Drug use: Reports: none Physical Exam - General Limitations: no limitations General appearance: alert, anxious - Head Head exam: atraumatic, normocephalic, normal inspection - Eye Eye exam: Present: normal appearance, PERRL, EOMI. Absent: scleral icterus, conjunctival injection, miosis, mydriasis - ENT ENT exam: normal exam, normal oropharynx, mucous membranes moist, TM's normal bilaterally, normal external ear exam - Neck Neck exam: Present: normal inspection, full ROM, trachea midline. Absent: tenderness, meningismus - Chest Chest inspection: Present: symmetric chest wall rise. Absent: tenderness - Respiratory Respiratory exam: Present: prolonged expiratory phase. Absent: normal lung sounds bilaterally, respiratory distress, accessory muscle use - Cardiovascular Cardiovascular exam: Present: normal rhythm, tachycardia - Abdominal Exam Abdominal exam: Present: soft, Non-Tender, normal bowel sounds. Absent: tenderness, distention, guarding, rebound, rigidity, pulsatile mass - Extremities Exam Extremities exam: Present: normal inspection, full ROM, normal capillary refill. Absent: tenderness, pedal edema, joint swelling, calf tenderness - Expanded Lower Extremity Exam Lower leg exam: Absent: Homans' sign Neurovascular/Tendon exam: Present: normal capillary refill. Absent: motor deficit, sensory deficit, tendon deficit, extremity cold to touch, pallor - Back Exam Back exam: Present: normal inspection, full ROM. Absent: tenderness, CVA tenderness (R), CVA tenderness (L), vertebral tenderness - Neurological Exam Neurological exam: Present: alert, oriented X3, CN II-XII intact. Absent: motor sensory deficit - Psychiatric Psychiatric exam: Present: normal affect, normal mood - Skin Skin exam: Present: warm, dry, intact, normal color. Absent: rash, cyanosis, diaphoresis, erythema, pallor, mottled Course Vital Signs Temperature 102.8 F H 03/09/17 13:47 Pulse Rate 113 03/09/17 13:47 Respiratory Rate 20 03/09/17 13:47 Blood Pressure 136/74 03/09/17 13:47 O2 Sat by Pulse Oximetry 94 03/09/17 13:47 Temperature 102.8 F H 03/09/17 13:47 Pulse Rate 108 03/09/17 14:16 Respiratory Rate 22 03/09/17 14:16 Blood Pressure 143/76 03/09/17 14:16 O2 Sat by Pulse Oximetry 95 03/09/17 14:16 Oxygen Delivery Oxygen Delivery Room Air Medical Decision Making - [facility] Narrative Medical decision making narrative: The patient is elderly, diabetic, has a history of COPD and has a right sided pneumonitis, she is febrile and tachycardic with a high lactic acid and bilirubin suggestive of severe sepsis. Fluid boluses blood cultures and IV antibiotics were given. The patient is currently stable. A lipase is been ordered as a precaution. Based on the patient's severe illness, she will require hospitalization, I discussed the case with the hospitalist on-call who has accepted the patient to their care. - Lab Data Lab results reviewed: Yes I reviewed the patient's lab results. Result diagrams: 03/09/17 14:15 03/09/17 14:15 Lab Results 03/09/17 03/09/17 03/09/17 Range/Units 14:15 14:15 14:15 WBC 12.0 H (4.3-11.1) K/mcL RBC 4.11 (3.82-4.97) M/mcL Hgb 12.3 (11.5-15.4) g/dL Hct 37.3 (35.3-44.9) % MCV 90.8 (83.0-100.0) fL MCH 29.9 (28.0-33.3) pg MCHC 33.0 (31.6-35.5) g/dL RDW 13.0 (11.5-14.5) % Plt Count 50 L (140-400) K/mcL MPV 12.4 (9.4-12.4) fL Immature Gran % 1.8 (0-4) % Seg Neutrophils % 86.9 % Lymphocytes % 2.9 % Monocytes % 8.0 % Eosinophils % 0.2 % Basophils % 0.2 % Neutrophils # 10.4 H (1.6-8.9) K/mcL Lymphocytes # 0.4 L (0.6-4.6) K/mcL Monocytes # 1.0 (0.0-1.3) K/mcL Eosinophils # 0.0 (0.0-0.6) K/mcL Basophils # 0.0 (0.0-0.2) K/mcL PT 14.3 H (9.4-12.1) Seconds INR 1.3 APTT 30.5 (26.0-36.0) Seconds Sodium 131 L (136-145) mEq/L Potassium 4.2 (3.5-4.5) mEq/L Chloride 98 (98-109) mEq/L Carbon Dioxide 20 (19-29) mEq/L BUN 16 (7-20) mg/dL Creatinine 0.93 (0.57-1.11) mg/dL Est GFR ( Amer) > 60 (> 60) Est GFR (Non-Af Amer) > 60 (> 60) BUN/Creatinine Ratio 17 (6-26) Glucose 178 H (70-99) mg/dL Calculated Osmolality 278 L (280-300) Lactic Acid (0.5-2.2) mmol/L Calcium 9.5 (8.6-10.8) mg/dL Magnesium 1.8 (1.6-2.6) mg/dL Total Bilirubin 4.0 H (0.2-1.2) mg/dL Direct Bilirubin 2.0 H (0.0-0.5) mg/dL Indirect Bilirubin 2.0 H (0.0-1.2) mg/dL AST 24 (5-34) Units/L ALT 22 (0-55) Units/L Alkaline Phosphatase 81 (38-126) Units/L Troponin I (0-0.03) ng/mL C-Reactive Protein 313 H (Less than 5) mg/L B-Natriuretic Peptide (0-100) pg/mL Serum Total Protein 7.7 (6.0-8.3) g/dL Albumin 3.3 L (3.5-5.0) g/dL Globulin 4.4 H (2.4-3.5) g/dL Albumin/Globulin Ratio 0.8 L (1.1-2.2) Urine Color (Yellow) Urine Clarity (Clear) Urine pH (5.0-8.0) pH Units Ur Specific [place] (1.010-1.025) Urine Protein (Neg-Trace) mg/dL Urine Glucose (UA) (Normal) mg/dL Urine Ketones (Negative) mg/dL Urine Blood (Negative) Urine Nitrite (Negative) Urine Bilirubin (Negative) Urine Urobilinogen (Normal) mg/dL Ur Leukocyte Esterase (Negative) Urine Microscopic RBC (0-3) per hpf Urine Microscopic WBC (0-3) per hpf Ur Squamous Epith Cells (None-Few) per lpf Urine Bacteria (None-Few) per hpf Hyaline Casts (None-Few) per lpf Ur Culture Indicated? (NO) 03/09/17 03/09/17 03/09/17 Range/Units 14:15 14:15 14:15 WBC (4.3-11.1) K/mcL RBC (3.82-4.97) M/mcL Hgb (11.5-15.4) g/dL Hct (35.3-44.9) % MCV (83.0-100.0) fL MCH (28.0-33.3) pg MCHC (31.6-35.5) g/dL RDW (11.5-14.5) % Plt Count (140-400) K/mcL MPV (9.4-12.4) fL Immature Gran % (0-4) % Seg Neutrophils % % Lymphocytes % % Monocytes % % Eosinophils % % Basophils % % Neutrophils # (1.6-8.9) K/mcL Lymphocytes # (0.6-4.6) K/mcL Monocytes # (0.0-1.3) K/mcL Eosinophils # (0.0-0.6) K/mcL Basophils # (0.0-0.2) K/mcL PT (9.4-12.1) Seconds INR APTT (26.0-36.0) Seconds Sodium (136-145) mEq/L Potassium (3.5-4.5) mEq/L Chloride (98-109) mEq/L Carbon Dioxide (19-29) mEq/L BUN (7-20) mg/dL Creatinine (0.57-1.11) mg/dL Est GFR ( Amer) (> 60) Est GFR (Non-Af Amer) (> 60) BUN/Creatinine Ratio (6-26) Glucose (70-99) mg/dL Calculated Osmolality (280-300) Lactic Acid 2.6 H (0.5-2.2) mmol/L Calcium (8.6-10.8) mg/dL Magnesium (1.6-2.6) mg/dL Total Bilirubin (0.2-1.2) mg/dL Direct Bilirubin (0.0-0.5) mg/dL Indirect Bilirubin (0.0-1.2) mg/dL AST (5-34) Units/L ALT (0-55) Units/L Alkaline Phosphatase (38-126) Units/L Troponin I 0.01 (0-0.03) ng/mL C-Reactive Protein (Less than 5) mg/L B-Natriuretic Peptide 76 (0-100) pg/mL Serum Total Protein (6.0-8.3) g/dL Albumin (3.5-5.0) g/dL Globulin (2.4-3.5) g/dL Albumin/Globulin Ratio (1.1-2.2) Urine Color (Yellow) Urine Clarity (Clear) Urine pH (5.0-8.0) pH Units Ur Specific [place] (1.010-1.025) Urine Protein (Neg-Trace) mg/dL Urine Glucose (UA) (Normal) mg/dL Urine Ketones (Negative) mg/dL Urine Blood (Negative) Urine Nitrite (Negative) Urine Bilirubin (Negative) Urine Urobilinogen (Normal) mg/dL Ur Leukocyte Esterase (Negative) Urine Microscopic RBC (0-3) per hpf Urine Microscopic WBC (0-3) per hpf Ur Squamous Epith Cells (None-Few) per lpf Urine Bacteria (None-Few) per hpf Hyaline Casts (None-Few) per lpf Ur Culture Indicated? (NO) 03/09/17 Range/Units 14:18 WBC (4.3-11.1) K/mcL RBC (3.82-4.97) M/mcL Hgb (11.5-15.4) g/dL Hct (35.3-44.9) % MCV (83.0-100.0) fL MCH (28.0-33.3) pg MCHC (31.6-35.5) g/dL RDW (11.5-14.5) % Plt Count (140-400) K/mcL MPV (9.4-12.4) fL Immature Gran % (0-4) % Seg Neutrophils % % Lymphocytes % % Monocytes % % Eosinophils % % Basophils % % Neutrophils # (1.6-8.9) K/mcL Lymphocytes # (0.6-4.6) K/mcL Monocytes # (0.0-1.3) K/mcL Eosinophils # (0.0-0.6) K/mcL Basophils # (0.0-0.2) K/mcL PT (9.4-12.1) Seconds INR APTT (26.0-36.0) Seconds Sodium (136-145) mEq/L Potassium (3.5-4.5) mEq/L Chloride (98-109) mEq/L Carbon Dioxide (19-29) mEq/L BUN (7-20) mg/dL Creatinine (0.57-1.11) mg/dL Est GFR ( Amer) (> 60) Est GFR (Non-Af Amer) (> 60) BUN/Creatinine Ratio (6-26) Glucose (70-99) mg/dL Calculated Osmolality (280-300) Lactic Acid (0.5-2.2) mmol/L Calcium (8.6-10.8) mg/dL Magnesium (1.6-2.6) mg/dL Total Bilirubin (0.2-1.2) mg/dL Direct Bilirubin (0.0-0.5) mg/dL Indirect Bilirubin (0.0-1.2) mg/dL AST (5-34) Units/L ALT (0-55) Units/L Alkaline Phosphatase (38-126) Units/L Troponin I (0-0.03) ng/mL C-Reactive Protein (Less than 5) mg/L B-Natriuretic Peptide (0-100) pg/mL Serum Total Protein (6.0-8.3) g/dL Albumin (3.5-5.0) g/dL Globulin (2.4-3.5) g/dL Albumin/Globulin Ratio (1.1-2.2) Urine Color Dark Yellow (Yellow) Urine Clarity Cloudy A (Clear) Urine pH 5.5 (5.0-8.0) pH Units Ur Specific [place] > 1.030 H (1.010-1.025) Urine Protein 100 H (Neg-Trace) mg/dL Urine Glucose (UA) >=1000 H (Normal) mg/dL Urine Ketones 80 H (Negative) mg/dL Urine Blood Trace H (Negative) Urine Nitrite Negative (Negative) Urine Bilirubin Small H (Negative) Urine Urobilinogen Normal (Normal) mg/dL Ur Leukocyte Esterase Small H (Negative) Urine Microscopic RBC 0-3 (0-3) per hpf Urine Microscopic WBC 5-15 H (0-3) per hpf Ur Squamous Epith Cells Many H (None-Few) per lpf Urine Bacteria None Seen (None-Few) per hpf Hyaline Casts None Seen (None-Few) per lpf Ur Culture Indicated? YES A (NO) - Radiology Data Radiology results reviewed: Yes I reviewed the patient's radiology results.
[2017-03-09] MEDS: 0.9 % Sodium Chloride 1,000 ML IVC SCH ×3 (14:25→19:59)
[2017-03-09 14:26] LABS: Basophils % 0.2 %; Eosinophils % 0.2 %; Hematocrit 37.3 % (35.3-44.9); Hemoglobin 12.3 g/dL (11.5-15.4); Immature Granulocytes % 1.8 % (0-4); Lymphocytes # 0.4 K/mcL (0.6-4.6); Lymphocytes % 2.9 %; Mean Corpuscular Hemoglobin 29.9 pg (28.0-33.3); Mean Corpuscular Volume 90.8 fL (83.0-100.0); Mean Platelet Volume 12.4 fL (9.4-12.4); Red Blood Count 4.11 M/mcL (3.82-4.97); Segmented Neutrophils % 86.9 %
[2017-03-09 14:27] LABS: Neutrophils # 10.4 K/mcL (1.6-8.9); Platelet Count 50 K/mcL (140-400)
[2017-03-09 14:30] LABS: Bilirubin,Urine Small (Negative); Blood,Urine Trace (Negative); Clarity,Urine Cloudy (Clear); Color,Urine Dark Yellow (Yellow); Glucose,Urine (UA) >=1000 mg/dL (Normal); Ketones,Urine 80 mg/dL (Negative); Leukocyte Esterase,Urine Small (Negative); Nitrite,Urine Negative (Negative); PH,Urine 5.5 pH Units (5.0-8.0); Protein,Urine 100 mg/dL (Neg-Trace); Specific Gravity,Urine > 1.030 (1.010-1.025); Urobilinogen,Urine Normal (Normal)
[2017-03-09 14:31] LABS: INR 1.3; Prothrombin Time 14.3 Seconds (9.4-12.1)
[2017-03-09 14:33] LABS: Bacteria,Urine None Seen per hpf (None-Few); Hyaline Casts,Urine None Seen per lpf (None-Few); RBC,Urine 0-3 per hpf (0-3); Squamous Epithelial Cell,Urine Many per lpf (None-Few)
[2017-03-09 14:33] LABS: Activated Partial Thrombo Time 30.5 Seconds (26.0-36.0)
[2017-03-09] MEDS ORDERED: Levofloxacin 750 MG/150 ML 750 MG/150 ML BAG IVPB ONE (14:37)
[2017-03-09 14:50] LABS: Alanine Aminotransferase 22 Units/L (0-55); Albumin 3.3 g/dL (3.5-5.0); Albumin/Globulin Ratio 0.8 (1.1-2.2); Alkaline Phosphatase 81 Units/L (38-126); Aspartate Amino Transferase 24 Units/L (5-34); BUN/Creatinine Ratio 17 (6-26); Blood Urea Nitrogen 16 mg/dL (7-20); C-Reactive Protein 313 mg/L (Less than 5); Calcium 9.5 mg/dL (8.6-10.8); Carbon Dioxide 20 mEq/L (19-29); Chloride 98 mEq/L (98-109); Globulin 4.4 g/dL (2.4-3.5); Glucose 178 mg/dL (70-99); Magnesium 1.8 mg/dL (1.6-2.6); Osmolality,Calculated 278 (280-300); Potassium 4.2 mEq/L (3.5-4.5); Sodium 131 mEq/L (136-145); Total Protein 7.7 g/dL (6.0-8.3); eGFR For African Americans > 60 (> 60); eGFR For Non-African Americans > 60 (> 60)
[2017-03-09] MEDS ORDERED: 0.9 % Sodium Chloride 1,000 ML IVC SCH (15:15)
[2017-03-09 15:22] LABS: Lipase 29 Units/L (8-78)
[2017-03-09] MEDS ORDERED: Ondansetron 4 MG/2 ML VIAL IVP PRN (16:23)
[2017-03-09] MEDS ORDERED: Acetaminophen 325 MG TABLET PO PRN (16:23)
[2017-03-09] MEDS ORDERED: Ipratropium/Albuterol Neb 3 ML IH PRN (16:26)
[2017-03-09] MEDS ORDERED: D5% in Water 1,000 ML IVC PRN (16:27)
[2017-03-09] MEDS ORDERED: Benzonatate 100 MG CAPSULE PO PRN (16:27)
[2017-03-09] MEDS ORDERED: Dextrose Gel 15 GM PO PRN ×2 (16:27)
[2017-03-09] MEDS ORDERED: *HR* Dextrose 50 % in Water (Syg) 50 ML SYRINGE IVP PRN (16:27)
[2017-03-09] MEDS ORDERED: methylPREDNISolone 125 MG/2 ML VIAL IVP ONE (16:28)
[2017-03-09] MEDS ORDERED: Insulin LISPRO 300 UNITS/3 ML VIAL SQ SCH ×2 (16:30→21:00)
--- NOTE | 2017-03-09 16:31 | Internal Med History&Physical ---
Date of Encounter: 03/09/17 Time of Encounter: 16:10 Assessment and Plan (1) Pneumonia Current visit: Yes Status: Acute Presented with fever, productive cough, chest XRay shows right sided Pneumonia; community-acquired; start aggressive IV hydration and IV antibiotics- Levaquin; supplemental O2 PRN and supportive care; f/up blood cultures; patient needs Pneumococcal vaccine prior to discharge; Qualifiers: Pneumonia type: due to unspecified organism Laterality: right Lung location: middle lobe of lung Qualified Code(s): J18.1 - Lobar pneumonia, unspecified organism (2) Hyperbilirubinemia Current visit: Yes Status: Acute could be related to sepsis; liver enzymes noted to be normal and patient is s/p cholecystectomy. CT abdomen ordered by ER, will f/up; supportive care; (3) Sepsis Current visit: Yes Status: Acute secondary to Pneumonia and possible UTI; continue IV hydration and antibiotics. F/up blood and urine cultures. Noted to be normotensive, but has fever, tachycardia, monitor vitals closely; had slight lactic acidosis initially, now improving; high risk for complications; DVT prophylaxis with intermittent pneumatic compression devices; avoid medical anticoagulants due to thrombocytopenia; Qualifiers: Sepsis type: sepsis due to unspecified organism Qualified Code(s): A41.9 - Sepsis, unspecified organism (4) UTI (urinary tract infection) Current visit: Yes Status: Suspected UA suggestive of UTI with small leukocyte esterase, 5-15WBC; continue IV antibiotics and f/up urine culture; Qualifiers: Urinary tract infection type: site unspecified Hematuria presence: without hematuria Qualified Code(s): N39.0 - Urinary tract infection, site not specified (5) Essential hypertension Current visit: Yes Status: Chronic BP stable; resume home meds; (6) Hyperlipidemia Current visit: Yes Status: Acute resume statin; Qualifiers: Hyperlipidemia type: unspecified Qualified Code(s): E78.5 - Hyperlipidemia , unspecified (7) COPD (chronic obstructive pulmonary disease) Current visit: Yes Status: Chronic not noted to be in acute exacerbation; continue PRN bronchodilators and Symbicort; Qualifiers: COPD type: unspecified COPD Qualified Code(s): J44.9 - Chronic obstructive pulmonary disease, unspecified (8) Thrombocytopenia Current visit: Yes Status: Chronic likely due to cirrhosis; continue to monitor; avoid anticoagulants; (9) Cirrhosis Current visit: Yes Status: Chronic continue beta-taryn; has thrombocytopenia and portal HTN; supportive care; Qualifiers: Hepatic cirrhosis type: unspecified hepatic cirrhosis Ascites presence: without ascites Qualified Code(s): K74.60 - Unspecified cirrhosis of liver (10) Diabetes Current visit: Yes Status: Chronic Accucheck blood glucose monitoring with sliding scale insulin as needed; check HbA1C; diabetic diet; Qualifiers: Diabetes mellitus type: type 2 Diabetes mellitus complication status: without complication Diabetes mellitus superintendent terminal insulin use: without superintendent terminal use Qualified Code(s): E11.9 - Type 2 diabetes mellitus without complications Internal Medicine - H&P: HPI Chief complaint: Chest pain, fever Admitted From: Emergency Dept Plans for Post Hospital Care: Home History of present illness: Ms. Marsh is a 61 year old female with h/o- DM, COPD, presents with c/o- worsening right-sided chest pain and fever for the last 4 days. She reports gradual onset, progressively worsening productive cough with yellowish green sputum, high-grade fever, associated with severe 10/10 right-sided chest pain, radiating to her head and giving her intense headaches, for the last 4 days. No outpatient treatment. Never had Pneumonia in the past. No associated dyspnea, palpitations, dizziness, but she does have poor oral intake for the last few days and currently has nausea and some right-sided abdominal pain. She never takes Influenza immunization, no Pneumococcal vaccine in the past. Past Med Surg Social Fam HX - Past Medical History Medical history: cirrhosis, COPD, diabetes, hyperlipidemia, hypertension, liver disease (cirrhosis), other Psychiatric history: no psych history - Past Surgical History Surgical History: cholecystectomy, hip replacement (right), other (tubal ligation) - Social History Smoking Status: Former smoker Smokeless Tobacco Status: No Alcohol use: none, occasionally Drug use: none Current living situation: Home, With Family Activity Level: Independent ambulation Recent Out of Country Travel Within the Last 8 Weeks: No Exposure or Possible Exposure to Illness During Travel: No - Family History Mother Living Status: Hx Family Cardiac Disorders: Yes Hx Family Cancer: Yes (cervical) Hx Family Endocrine Disorder: Yes Father Living Status: Hx Family Cardiac Disorders: Yes Internal Medicine - H&P: Meds Atorvastatin [Lipitor] 10 mg PO HS 02/15/17 [History] Gabapentin [Neurontin] 600 mg PO TID 02/15/17 [History] Glimepiride [Amaryl] 4 mg PO DAILY 02/15/17 [History] Linagliptin [Tradjenta] 5 mg PO DAILY 02/15/17 [History] Lisinopril [Zestril] 20 mg PO DAILY 02/15/17 [History] Nadolol 20 mg PO DAILY 02/15/17 [History] Oxycodone HCl [Oxycontin] 20 mg PO TID 02/15/17 [History] Albuterol Neb [Proventil Neb] 2.5 mg IH TID PRN 02/16/17 [History] Albuterol Sulfate [Albuterol Inhaler] 2 puff PO Q4H PRN 02/16/17 [History] Budesonide/Formoterol 160/4.5 [Symbicort 160/4.5] 2 puff IH BIDR 02/16/17 [ History] Cyanocobalamin (Vitamin B-12) [Vitamin B12] 1,000 mcg PO DAILY 02/16/17 [History ] Esomeprazole Magnesium [Nexium] 20 mg PO DAILY 02/16/17 [History] Meclizine [Antivert] 25 mg PO Q8H PRN #15 tablet 02/16/17 [Rx] Metformin HCl [Metformin HCl ER] 500 mg PO TID 02/16/17 [History] Nystatin Cream [Mycostatin Cream] 1 appl TP TID #0 tube 02/16/17 [Rx] OxyCODONE Immed Rel [Roxicodone 5 MG] 5 mg PO TID PRN 02/16/17 [History] Allergies morphine Allergy (Verified 02/16/17 11:20) Hives naproxen [From Naprosyn] Allergy (Verified 02/16/17 11:20) Nausea ivp dye Allergy (Uncoded 09/11/15 14:09) Itching All Systems PM: A 10-system review of systems was performed and is negative for pertinent findings except as documented above in the HPI. - Constitutional Constitutional: anorexia, chills, fever(s), weakness - EENT Eyes: no change in vision, no discharge, no pain, no photophobia Ears: no ear discharge, no ear pain, no tinnitus Nose, mouth and throat: no dysphagia, no nasal discharge, no neck pain, no sore throat - Cardiovascular Cardiovascular ROS IM: chest pain, diaphoresis - Respiratory Respiratory: cough, pain on inspiration, chest congestion, excessive phlegm production - Gastrointestinal Gastrointestinal: abdominal pain, nausea - Genitourinary Genitourinary: no change in urinary stream, no dysuria, no flank pain, no hematuria - Musculoskeletal Musculoskeletal ROS IM: no numbness, no tingling - Integumentary Integumentary IM: no rash, no unusual bruising - Neurological Neurological ROS: no confusion, no convulsions, no focal weakness, no numbness, no tingling, no tremor(s) - Hematologic/Lymphatic Hematologic/Lymphatic: no easy bruising - Constitutional Vitals: Temp Pulse Resp BP Pulse Ox 102.8 F H 106 16 148/73 96 03/09/17 13:47 03/09/17 15:28 03/09/17 15:28 03/09/17 15:28 03/09/17 15:28 General appearance: Present: mild distress (uncomfortable due to fever and chest pain), A&O X 3, answers questions appropriately - Respiratory Respiratory exam: Present: decreased breath sounds (at right base), CTAB. Absent: accessory muscle use, rales, rhonchi, wheezes - Cardiovascular Cardiovascular exam: Present: RRR, +S1, +S2, tachycardia. Absent: diastolic murmur, gallop, rubs, systolic murmur - GI/Abdominal GI/Abdominal exam: Present: normal bowel sounds, soft, no peritoneal signs. Absent: distended, tenderness - Extremities Exam Extremities exam: Present: full ROM, warm, radial pulses palpable and symetrical. Absent: calf tenderness, cyanotic, pedal edema - Neurological Exam Neurological exam: Present: CN II-XII intact, oriented X3, no focal deficits. Absent: pronater drift, facial droop, speech deficit - Skin Skin exam: Present: dry, intact Internal Med - H&P Results - Labs CBC & Chem 7: 03/09/17 14:15 03/09/17 14:15 Labs: Short CBC 03/09/17 Range/Units 14:15 WBC 12.0 H (4.3-11.1) K/mcL Hgb 12.3 (11.5-15.4) g/dL Hct 37.3 (35.3-44.9) % Plt Count 50 L (140-400) K/mcL Neutrophils # 10.4 H (1.6-8.9) K/mcL BMP 03/09/17 14:15 Sodium 131 L Potassium 4.2 Chloride 98 Carbon Dioxide 20 BUN 16 Creatinine 0.93 Glucose 178 H Calcium 9.5 Cardiac Enzymes 03/09/17 Range/Units 14:15 Troponin I 0.01 (0-0.03) ng/mL Liver Function 03/09/17 Range/Units 14:15 Total Bilirubin 4.0 H (0.2-1.2) mg/dL Direct Bilirubin 2.0 H (0.0-0.5) mg/dL AST 24 (5-34) Units/L ALT 22 (0-55) Units/L Alkaline Phosphatase 81 (38-126) Units/L Albumin 3.3 L (3.5-5.0) g/dL Urine 03/09/17 Range/Units 14:18 Urine Color Dark Yellow (Yellow) Urine Clarity Cloudy A (Clear) Urine pH 5.5 (5.0-8.0) pH Units Ur Specific [place] > 1.030 H (1.010-1.025) Urine Protein 100 H (Neg-Trace) mg/dL Urine Glucose (UA) >=1000 H (Normal) mg/dL - Impressions ITS Impressions Chest X-Ray 03/09/17 14:02 IMPRESSION: Right middle lobe pneumonia. D/ / 03/09/2017 15:04:29 [facility] Provider: Rinku Menchaca MD - Diagnostic Studies Chest x-ray Status: image reviewed by me Additional comments: Lobar consolidation in right middle lobe;
[2017-03-09 17:08] LABS: Hemoglobin A1C 7.8 %
[2017-03-09] MEDS: Budesonide/Formoterol 160/4.5 MDI IH SCH (20:38)
[2017-03-09] MEDS: Gabapentin 300 MG CAPSULE PO SCH (22:45)
[2017-03-10 05:00] LABS: Hematocrit 33.2 % (35.3-44.9); Mean Corpuscular HGB Conc 32.2 g/dL (31.6-35.5)
[2017-03-10 05:02] LABS: Hemoglobin 10.7 g/dL (11.5-15.4); Immature Platelets 15.8 % (1.1-6.1); Mean Corpuscular Hemoglobin 29.8 pg (28.0-33.3); Mean Corpuscular Volume 92.5 fL (83.0-100.0); Mean Platelet Volume 12.6 fL (9.4-12.4); Red Blood Count 3.59 M/mcL (3.82-4.97); Red Cell Distribution Width 12.7 % (11.5-14.5)
[2017-03-10 05:03] LABS: Monocytes # 0.1 K/mcL (0.0-1.3)
[2017-03-10 05:14] LABS: Platelet Count 38 K/mcL (140-400)
[2017-03-10 05:20] LABS: Alanine Aminotransferase 17 Units/L (0-55); Albumin 2.7 g/dL (3.5-5.0); Albumin/Globulin Ratio 0.7 (1.1-2.2); Alkaline Phosphatase 71 Units/L (38-126); Aspartate Amino Transferase 22 Units/L (5-34); BUN/Creatinine Ratio 21 (6-26); Bilirubin,Total 2.4 mg/dL (0.2-1.2); Blood Urea Nitrogen 18 mg/dL (7-20); Calcium 8.3 mg/dL (8.6-10.8); Carbon Dioxide 21 mEq/L (19-29); Chloride 104 mEq/L (98-109); Globulin 3.9 g/dL (2.4-3.5); Glucose 357 mg/dL (70-99); Osmolality,Calculated 292 (280-300); Potassium 3.7 mEq/L (3.5-4.5); Sodium 133 mEq/L (136-145); Total Protein 6.6 g/dL (6.0-8.3); eGFR For African Americans > 60 (> 60); eGFR For Non-African Americans > 60 (> 60)
[2017-03-10 05:27] LABS: Lymphocytes # 0.3 K/mcL (0.6-4.6); Neutrophils # 3.7 K/mcL (1.6-8.9)
[2017-03-10 05:28] LABS: Platelet Estimate Marked Decrease (Normal)
[2017-03-10] MEDS: 0.9 % Sodium Chloride 1,000 ML IVC SCH ×2 (06:07→19:29)
[2017-03-10] MEDS: Insulin LISPRO 300 UNITS/3 ML VIAL SQ SCH ×4 (08:10→20:40)
[2017-03-10] MEDS: Levofloxacin 750 MG/150 ML 750 MG/150 ML BAG IVPB SCH (08:10)
[2017-03-10] MEDS: Lisinopril 20 MG TABLET PO SCH (08:10)
[2017-03-10] MEDS: Gabapentin 300 MG CAPSULE PO SCH ×3 (08:10→23:15)
[2017-03-10] MEDS: Insulin DETEMIR 100 UNIT/ML X5UNITS SQ SCH ×2 (08:48→20:40)
--- NOTE | 2017-03-10 09:01 | Internal Med Progress Note ---
Date of Encounter: 03/10/17 Time of Encounter: 08:56 - Assessment and plan (1) Pneumonia Current Visit: Yes Status: Acute Assessment and plan: Improving; continue IV antibiotics- Levaquin; hold IV fluids; f/up blood cultures; continue supportive care and supplemental O2; Pneumococcal vaccine prior to discharge; Qualifiers: Pneumonia type: due to unspecified organism Laterality: right Lung location: middle lobe of lung Qualified Code(s): J18.1 - Lobar pneumonia, unspecified organism (2) Hyperbilirubinemia Current Visit: Yes Status: Resolved Assessment and plan: improving; likely related to sepsis; CT abdomen/pelvis showed no acute abnormality; patient is s/p cholecystectomy; liver enzymes WNL; (3) Sepsis Current Visit: Yes Status: Resolved Assessment and plan: improved fever and tachycardia; not requiring supplemental O2; resolved leukocytosis; patient does have baseline leukopenia; Qualifiers: Sepsis type: sepsis due to unspecified organism Qualified Code(s): A41.9 - Sepsis, unspecified organism (4) UTI (urinary tract infection) Current Visit: Yes Status: Ruled-out Assessment and plan: UA was suggestive of UTI, urine culture shows no significant growth, likely contamination; Qualifiers: Urinary tract infection type: site unspecified Hematuria presence: without hematuria Qualified Code(s): N39.0 - Urinary tract infection, site not specified (5) Essential hypertension Current Visit: Yes Status: Chronic Assessment and plan: BP low normal today; continue home meds and monitor closely; (6) Hyperlipidemia Current Visit: Yes Status: Chronic Qualifiers: Hyperlipidemia type: unspecified Qualified Code(s): E78.5 - Hyperlipidemia , unspecified (7) COPD (chronic obstructive pulmonary disease) Current Visit: Yes Status: Chronic Assessment and plan: not in acute exacerbation; continue PRN bronchodilators and supplemental O2; Qualifiers: COPD type: unspecified COPD Qualified Code(s): J44.9 - Chronic obstructive pulmonary disease, unspecified (8) Thrombocytopenia Current Visit: Yes Status: Chronic (9) Cirrhosis Current Visit: Yes Status: Chronic Qualifiers: Hepatic cirrhosis type: unspecified hepatic cirrhosis Ascites presence: without ascites Qualified Code(s): K74.60 - Unspecified cirrhosis of liver (10) Diabetes Current Visit: Yes Status: Chronic Assessment and plan: Accucheck blood glucose monitoring shows uncontrolled blood sugars; likely due to sepsis and hospitalization; will increase sliding scale insulin; diabetic diet; Qualifiers: Diabetes mellitus type: type 2 Diabetes mellitus complication status: without complication 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 Improved fever, weakness; tolerates oral diet; improving chest pain and cough; - Constitutional Vitals: Temp Pulse Resp BP Pulse Ox 97.5 F L 78 16 108/67 97 03/10/17 07:28 03/10/17 07:28 03/10/17 07:28 03/10/17 07:28 03/10/17 08:19 General appearance: Present: A&O X 3, answers questions appropriately - Respiratory Respiratory exam: Present: decreased breath sounds (decreased at right base), CTAB. Absent: accessory muscle use, rhonchi, wheezes - Cardiovascular Cardiovascular exam: Present: RRR, +S1, +S2, tachycardia. Absent: diastolic murmur, gallop, rubs, systolic murmur - GI/Abdominal GI/Abdominal exam: Present: normal bowel sounds, soft, no peritoneal signs. Absent: distended, tenderness - Extremities Exam Extremities exam: Present: warm, radial pulses palpable and symetrical. Absent : calf tenderness, cyanotic, pedal edema Internal Medicine: Result - Labs CBC & Chem 7: 03/10/17 04:27 03/10/17 04:27 Labs: Short CBC 03/10/17 Range/Units 04:27 WBC 4.1 L D (4.3-11.1) K/mcL Hgb 10.7 L D (11.5-15.4) g/dL Hct 33.2 L (35.3-44.9) % Plt Count 38 L (140-400) K/mcL Neutrophils # 3.7 (1.6-8.9) K/mcL BMP 03/10/17 04:27 Sodium 133 L Potassium 3.7 Chloride 104 Carbon Dioxide 21 BUN 18 Creatinine 0.86 Glucose 357 H Calcium 8.3 L Liver Function 03/10/17 Range/Units 04:27 Total Bilirubin 2.4 H (0.2-1.2) mg/dL AST 22 (5-34) Units/L ALT 17 (0-55) Units/L Alkaline Phosphatase 71 (38-126) Units/L Albumin 2.7 L (3.5-5.0) g/dL - ABG Interpretation ABG results: PT/INR, D-dimer PT 14.3 Seconds (9.4-12.1) H 03/09/17 14:15 Consult Discharge Plan - Plan Referrals: Latosha Wells MD [Primary Care Provider] - 03/18/17 10:45 am (Please follow up as schedule...)
[2017-03-10] MEDS: Budesonide/Formoterol 160/4.5 MDI IH SCH ×2 (10:27→21:16)
--- NOTE | 2017-03-10 17:15 | Electrocardiograph Report ---
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
[2017-03-11] MEDS: 0.9 % Sodium Chloride 1,000 ML IVC SCH (03:55)
[2017-03-11 05:49] LABS: Basophils % 0.2 %; Red Cell Distribution Width 13.1 % (11.5-14.5)
[2017-03-11 05:51] LABS: Hematocrit 29.4 % (35.3-44.9); Hemoglobin 9.6 g/dL (11.5-15.4); Immature Granulocytes % 1.3 % (0-4); Lymphocytes # 0.2 K/mcL (0.6-4.6); Lymphocytes % 4.4 %; Mean Corpuscular HGB Conc 32.7 g/dL (31.6-35.5); Mean Corpuscular Hemoglobin 29.9 pg (28.0-33.3); Mean Corpuscular Volume 91.6 fL (83.0-100.0); Mean Platelet Volume 13.1 fL (9.4-12.4); Monocytes # 0.3 K/mcL (0.0-1.3); Monocytes % 5.7 %; Red Blood Count 3.21 M/mcL (3.82-4.97); Segmented Neutrophils % 88.4 %
[2017-03-11 05:54] LABS: Neutrophils # 4.9 K/mcL (1.6-8.9); Platelet Count 48 K/mcL (140-400)
[2017-03-11] MEDS: Lisinopril 20 MG TABLET PO SCH (08:45)
[2017-03-11] MEDS: Gabapentin 300 MG CAPSULE PO SCH ×3 (08:45→20:49)
[2017-03-11] MEDS: Levofloxacin 750 MG/150 ML 750 MG/150 ML BAG IVPB SCH (08:45)
[2017-03-11] MEDS: Insulin LISPRO 300 UNITS/3 ML VIAL SQ SCH ×4 (08:46→20:57)
[2017-03-11] MEDS: Insulin DETEMIR 100 UNIT/ML X5UNITS SQ SCH ×2 (08:49→20:49)
[2017-03-11] MEDS: Budesonide/Formoterol 160/4.5 MDI IH SCH ×2 (10:56→22:16)
--- NOTE | 2017-03-11 16:11 | Internal Med Progress Note ---
Date of Encounter: 03/11/17 Time of Encounter: 16:06 - Assessment and plan (1) Pneumonia Current Visit: Yes Status: Acute Assessment and plan: Improving; continue IV antibiotics- Levaquin; hold IV fluids; f/up blood cultures; continue supportive care and supplemental O2; Pneumococcal vaccine prior to discharge; possible d/c tomorrow. D/W patient and her daughter. D/W nursing staff. Qualifiers: Pneumonia type: due to unspecified organism Laterality: right Lung location: middle lobe of lung Qualified Code(s): J18.1 - Lobar pneumonia, unspecified organism (2) Sepsis Current Visit: Yes Status: Resolved Assessment and plan: improved fever and tachycardia; not requiring supplemental O2; resolved leukocytosis; patient does have baseline leukopenia; Qualifiers: Sepsis type: sepsis due to unspecified organism Qualified Code(s): A41.9 - Sepsis, unspecified organism (3) Diabetes Current Visit: Yes Status: Acute Qualifiers: Diabetes mellitus type: type 2 Diabetes mellitus complication status: without complication Diabetes mellitus jail insulin use: unspecified jail insulin use status Qualified Code(s): E11.9 - Type 2 diabetes mellitus without complications (4) Cirrhosis Current Visit: Yes Status: Chronic Qualifiers: Hepatic cirrhosis type: unspecified hepatic cirrhosis Ascites presence: without ascites Qualified Code(s): K74.60 - Unspecified cirrhosis of liver (5) Essential hypertension Current Visit: Yes Status: Chronic Assessment and plan: BP low normal today; continue home meds and monitor closely; (6) Hyperbilirubinemia Current Visit: Yes Status: Resolved - Subjective Interval history: first encounter with the patient. afebrile, feels better. - Constitutional Vitals: Temp Pulse Resp BP Pulse Ox 97.8 F 80 17 107/61 97 03/11/17 10:34 03/11/17 10:34 03/11/17 10:57 03/11/17 10:34 03/11/17 10:57 General appearance: Present: A&O X 3, answers questions appropriately - Head Head exam: Present: atraumatic, normocephalic - Eye Eye exam: Present: PERRL, conjuntiva pink, sclera anicteric Pupils: Present: PERRL - Neck Neck exam general surgery: Present: supple, trachea midline. Absent: lymphadenopathy - Respiratory Respiratory exam: Present: CTAB. Absent: accessory muscle use, rales, rhonchi, wheezes - Cardiovascular Cardiovascular exam: Present: RRR, +S1, +S2. Absent: diastolic murmur, gallop, rubs, systolic murmur - GI/Abdominal GI/Abdominal exam: Present: normal bowel sounds, soft, no peritoneal signs. Absent: distended, tenderness - Extremities Exam Extremities exam: Present: warm, radial pulses palpable and symetrical. Absent : calf tenderness, cyanotic, pedal edema - Neurological Exam Neurological exam: Present: CN II-XII intact, oriented X3, no focal deficits. Absent: pronater drift, facial droop, speech deficit - Skin Skin exam: Present: dry, intact Internal Medicine: Result - Labs CBC & Chem 7: 03/11/17 05:03 03/10/17 04:27 Labs: Short CBC 03/11/17 Range/Units 05:03 WBC 5.5 (4.3-11.1) K/mcL Hgb 9.6 L (11.5-15.4) g/dL Hct 29.4 L (35.3-44.9) % Plt Count 48 L (140-400) K/mcL Neutrophils # 4.9 (1.6-8.9) K/mcL - ABG Interpretation ABG results: PT/INR, D-dimer PT 14.3 Seconds (9.4-12.1) H 03/09/17 14:15 Consult Discharge Plan - Plan Referrals: Latosha Wells MD [Primary Care Provider] - 03/18/17 10:45 am (Please follow up as schedule...)
[2017-03-11] MEDS: Mag Hydrox/Al Hydrox/Simeth 30 ML UDC PO PRN ×2 (17:04→20:49)
[2017-03-12 05:43] LABS: Hemoglobin 10.6 g/dL (11.5-15.4)
[2017-03-12 05:45] LABS: Eosinophils % 0.4 %; Immature Granulocytes % 0.8 % (0-4); Immature Platelets 11.7 % (1.1-6.1); Lymphocytes # 0.7 K/mcL (0.6-4.6); Lymphocytes % 15.2 %; Mean Corpuscular HGB Conc 32.1 g/dL (31.6-35.5); Mean Corpuscular Hemoglobin 29.7 pg (28.0-33.3); Mean Corpuscular Volume 92.4 fL (83.0-100.0); Mean Platelet Volume 12.3 fL (9.4-12.4); Monocytes # 0.5 K/mcL (0.0-1.3); Monocytes % 9.9 %; Neutrophils # 3.5 K/mcL (1.6-8.9); Red Blood Count 3.57 M/mcL (3.82-4.97); Red Cell Distribution Width 13.4 % (11.5-14.5); Segmented Neutrophils % 73.7 %
[2017-03-12 05:48] LABS: Alanine Aminotransferase 22 Units/L (0-55); Albumin 2.5 g/dL (3.5-5.0); Albumin/Globulin Ratio 0.7 (1.1-2.2); Alkaline Phosphatase 58 Units/L (38-126); Aspartate Amino Transferase 26 Units/L (5-34); BUN/Creatinine Ratio 24 (6-26); Bilirubin,Direct 0.5 mg/dL (0.0-0.5); Bilirubin,Indirect 0.3 mg/dL (0.0-1.2); Bilirubin,Total 0.8 mg/dL (0.2-1.2); Blood Urea Nitrogen 18 mg/dL (7-20); Carbon Dioxide 23 mEq/L (19-29); Chloride 111 mEq/L (98-109); Globulin 3.4 g/dL (2.4-3.5); Glucose 182 mg/dL (70-99); Osmolality,Calculated 295 (280-300); Potassium 3.9 mEq/L (3.5-4.5); Sodium 139 mEq/L (136-145); Total Protein 5.9 g/dL (6.0-8.3); eGFR For African Americans > 60 (> 60); eGFR For Non-African Americans > 60 (> 60)
[2017-03-12 05:57] LABS: Platelet Count 62 K/mcL (140-400)
[2017-03-12 06:48] VITALS: BP 108/67
[2017-03-12] MEDS: Budesonide/Formoterol 160/4.5 MDI IH SCH (07:48)
[2017-03-12] MEDS: Insulin LISPRO 300 UNITS/3 ML VIAL SQ SCH (07:55)
[2017-03-12] MEDS ORDERED: levoFLOXacin 500 MG TABLET PO SCH (09:15)
--- NOTE | 2017-03-12 09:31 | Discharge Summary ---
Date of Encounter: 03/12/17 Time of Encounter: 09:31 - Discharge Diagnosis (1) Pneumonia Priority: Primary Status: Acute Qualifiers: Pneumonia type: due to unspecified organism Laterality: right Lung location: middle lobe of lung Qualified Code(s): J18.1 - Lobar pneumonia, unspecified organism (2) Sepsis Priority: Secondary Status: Resolved Qualifiers: Sepsis type: sepsis due to unspecified organism Qualified Code(s): A41.9 - Sepsis, unspecified organism (3) Diabetes Priority: Secondary Status: Acute Qualifiers: Diabetes mellitus type: type 2 Diabetes mellitus complication status: without complication Diabetes mellitus mcc insulin use: unspecified mcc insulin use status Qualified Code(s): E11.9 - Type 2 diabetes mellitus without complications (4) Cirrhosis Priority: Secondary Status: Chronic Qualifiers: Hepatic cirrhosis type: unspecified hepatic cirrhosis Ascites presence: without ascites Qualified Code(s): K74.60 - Unspecified cirrhosis of liver (5) Essential hypertension Priority: Secondary Status: Chronic (6) Hyperbilirubinemia Priority: Secondary Status: Resolved - Discharge Medications Prescriptions: Levofloxacin [Levaquin] 750 mg PO DAILY #4 tablet Home Medications: Atorvastatin [Lipitor] 10 mg PO HS 02/15/17 [History] Gabapentin [Neurontin] 600 mg PO TID 02/15/17 [History] Glimepiride [Amaryl] 4 mg PO DAILY 02/15/17 [History] Linagliptin [Tradjenta] 5 mg PO DAILY 02/15/17 [History] Lisinopril [Zestril] 20 mg PO DAILY 02/15/17 [History] Nadolol 20 mg PO DAILY 02/15/17 [History] Oxycodone HCl [Oxycontin] 20 mg PO TID 02/15/17 [History] Albuterol Neb [Proventil Neb] 2.5 mg IH TID PRN 02/16/17 [History] Albuterol Sulfate [Albuterol Inhaler] 2 puff PO Q4H PRN 02/16/17 [History] Budesonide/Formoterol 160/4.5 [Symbicort 160/4.5] 2 puff IH BIDR 02/16/17 [ History] Cyanocobalamin (Vitamin B-12) [Vitamin B12] 1,000 mcg PO DAILY 02/16/17 [History ] Esomeprazole Magnesium [Nexium] 20 mg PO DAILY 02/16/17 [History] Meclizine [Antivert] 25 mg PO Q8H PRN #15 tablet 02/16/17 [Rx] Metformin HCl [Metformin HCl ER] 500 mg PO TID 02/16/17 [History] Nystatin Cream [Mycostatin Cream] 1 appl TP TID #0 tube 02/16/17 [Rx] OxyCODONE Immed Rel [Roxicodone 5 MG] 5 mg PO TID PRN 02/16/17 [History] Citalopram Hydrobromide [Citalopram HBr] 10 mg PO DAILY 03/09/17 [History] Triamcinolone Acet 0.1% OINT [Kenalog] 1 appl TP BID 03/09/17 [History] Levofloxacin [Levaquin] 750 mg PO DAILY #4 tablet 03/12/17 [Rx] Allergies/Adverse Reactions: Allergies morphine Allergy (Verified 02/16/17 11:20) Hives naproxen [From Naprosyn] Allergy (Verified 02/16/17 11:20) Nausea ivp dye Allergy (Uncoded 09/11/15 14:09) Itching Date of admission: 03/09/17 16:31 Primary care physician: Latosha Wells Discharging clinician: Tushar Segal Anticipated date of discharge: 03/12/17 - Patient Status Disposition: Home, Self-Care Condition: Fair Functional capacity at discharge: independent ambulation Overall status at discharge: patient is back to baseline - Discharge Instructions Follow Up With: Latosha Wells MD [Primary Care Provider] - 03/18/17 10:45 am (Please follow up as schedule...) - Diet and Activity Activity: increase activity as tolerated Diet: advance to your usual diet Interval History: Ms. Marsh is a 61 year old female with h/o- DM, COPD, presents with c/o- worsening right-sided chest pain and fever for the last 4 days. She reports gradual onset, progressively worsening productive cough with yellowish green sputum, high-grade fever, associated with severe 10/10 right-sided chest pain, radiating to her head and giving her intense headaches, for the last 4 days. No outpatient treatment. Never had Pneumonia in the past. No associated dyspnea, palpitations, dizziness, but she does have poor oral intake for the last few days and currently has nausea and some right-sided abdominal pain. She never takes Influenza immunization, no Pneumococcal vaccine in the past. Hospital course: Ms. Marsh is a 61 year old female the patient was sent with fever, productive cough and evidence in the chest x-ray of right sided pneumonia. The patient was started on IV fluids and IV antibiotics. She responded well to Levaquin. Cultures have been negative. The patient has been clinically stable , no fever, no leukocytosis. Initially she presented febrile and tachycardic which consistent with sepsis criteria. During the admission she improved, she is not septic and is otherwise stable. The patient will be discharged home to complete antibiotic course with by mouth Levaquin. She was explained about the plan of care, she expressed understanding. - Time Spent with Patient Total time spent providing and/or coordinating discharge services: - Constitutional Vitals: Temp Pulse Resp BP Pulse Ox 98.5 F 81 16 108/67 96 03/12/17 06:45 03/12/17 06:45 03/12/17 07:49 03/12/17 06:45 03/12/17 07:49 General appearance: Present: A&O X 3, pleasant, no acute distress, answers questions appropriately - Head Head exam: Present: atraumatic, normocephalic - Eye Eye exam: Present: PERRL, conjuntiva pink, sclera anicteric Pupils: Present: PERRL - Neck Neck exam general surgery: Present: supple, trachea midline. Absent: lymphadenopathy - Respiratory Respiratory exam: Present: CTAB. Absent: accessory muscle use, rales, rhonchi, wheezes - Cardiovascular Cardiovascular exam: Present: RRR, +S1, +S2. Absent: diastolic murmur, gallop, rubs, systolic murmur - GI/Abdominal GI/Abdominal exam: Present: normal bowel sounds, soft, no peritoneal signs. Absent: distended, tenderness - Extremities Exam Extremities exam: Present: warm, radial pulses palpable and symetrical. Absent : calf tenderness, cyanotic, pedal edema - Neurological Exam Neurological exam: Present: CN II-XII intact, oriented X3, no focal deficits. Absent: pronater drift, facial droop, speech deficit - Skin Skin exam: Present: dry, intact
[2017-03-12] MEDS: Lisinopril 20 MG TABLET PO SCH (09:41)
[2017-03-12] MEDS: Insulin DETEMIR 100 UNIT/ML X5UNITS SQ SCH (09:42)
[2017-03-12] MEDS: Gabapentin 300 MG CAPSULE PO SCH (09:42)
== END 2017-03-12 11:06 | disposition home or self-care (01) | DRG 720 ==
LOC: EMEROO 13:46 → 2ANU 13:46 → SUATTDRO 16:31 → 2ANU 18:46
PROVIDERS: ADMIT Internal Medicine Endocrinology, Diabetes & Metabolism; ATTEND Internal Medicine

== ENCOUNTER 2019-09-22 09:00 | Inpatient (IN) ==
[2019-09-22] MEDS ORDERED: Gabapentin 300 MG CAPSULE PO ONE (09:19)
[2019-09-22] MEDS ORDERED: *HR* Labetalol 20 MG/4 ML SYRINGE IVP PRN (09:19)
[2019-09-22] MEDS ORDERED: Albuterol 2.5 MG/3 ML NEBULIZER IH PRN (09:21)
[2019-09-22] MEDS ORDERED: CeFAZolin Syr 2,000MG/20 ML 2,000 MG/20 ML SYRINGE IVPB ONE (09:21)
[2019-09-22] MEDS: Ringers Solution, Lactated 1,000 ML IVC SCH ×3 (09:36→20:53)
[2019-09-22] MEDS ORDERED: Ondansetron 4 MG/2 ML VIAL IVP ONE (09:56)
[2019-09-22] MEDS ORDERED: *HR* OxyCODONE Immed Rel 5 MG TABLET PO ONE (09:56)
[2019-09-22] MEDS ORDERED: *HR* Propofol 200 MG/20 ML VIAL IVP ONE (10:08)
[2019-09-22] MEDS ORDERED: Lidocaine -MPF 4% 5 ML AMPUL ONE (10:08)
[2019-09-22] MEDS ORDERED: *HR* Midazolam HCl 2 MG/2 ML VIAL ONE (10:08)
[2019-09-22] MEDS ORDERED: *HR* Succinylcholine 200 MG/10 ML VIAL IVP ONE (10:08)
[2019-09-22] MEDS ORDERED: Lidocaine -MPF 2% 2 ML VIAL ONE (10:08)
[2019-09-22] MEDS ORDERED: Ondansetron 4 MG/2 ML VIAL ONE (10:08)
[2019-09-22] MEDS ORDERED: Dexamethasone 4 MG/ML VIAL ONE (10:08)
[2019-09-22 10:38] LABS: INR 1.1
[2019-09-22 10:42] LABS: Basophils % 1.1 %; Immature Granulocytes % 0.4 % (0-4); Lymphocytes # 0.7 K/mcL (0.6-4.6); Lymphocytes % 24.6 %; Monocytes # 0.3 K/mcL (0.0-1.3); Monocytes % 10.3 %; White Blood Count 2.7 K/mcL (4.3-11.1)
[2019-09-22 10:44] LABS: Eosinophils # 0.1 K/mcL (0.0-0.6); Eosinophils % 5.1 %; Hematocrit 35.5 % (35.3-44.9); Hemoglobin 12.3 g/dL (11.5-15.4); Mean Corpuscular HGB Conc 34.6 g/dL (31.6-35.5); Mean Corpuscular Hemoglobin 31.4 pg (28.0-33.3); Mean Corpuscular Volume 90.6 fL (83.0-100.0); Mean Platelet Volume 12.4 fL (9.4-12.4); Neutrophils # 1.6 K/mcL (1.6-8.9); Red Blood Count 3.92 M/mcL (3.82-4.97); Red Cell Distribution Width 12.9 % (11.5-14.5); Segmented Neutrophils % 58.5 %
[2019-09-22 10:48] LABS: Platelet Count 52 K/mcL (140-400)
[2019-09-22] MEDS ORDERED: *HR* FentaNYL (PF) 100 MCG/2 ML VIAL ONE (15:26)
[2019-09-22] MEDS: *HR* HYDROmorphone (PF) 1 MG/ML SYRINGE IVP PRN ×5 (17:32→18:05)
[2019-09-22] MEDS ORDERED: Acetaminophen 325 MG TABLET PO PRN (18:35)
[2019-09-22] MEDS ORDERED: Ondansetron 4 MG/2 ML VIAL IVP PRN (18:35)
[2019-09-22] MEDS: *HR* OxyCODONE Immed Rel 5 MG TABLET PO PRN (19:01)
[2019-09-22] MEDS: *HR* Glimepiride 4 MG TABLET PO SCH (20:53)
[2019-09-22] MEDS: *HR* Metformin 500 MG TABLET PO SCH (20:53)
[2019-09-22] MEDS: Budesonide/Formoterol 160/4.5 1 PUFF INH IH SCH (21:53)
[2019-09-23] MEDS: *HR* OxyCODONE Immed Rel 5 MG TABLET PO PRN ×4 (03:00→21:03)
[2019-09-23] MEDS: Budesonide/Formoterol 160/4.5 1 PUFF INH IH SCH ×2 (07:45→20:30)
[2019-09-23] MEDS: *HR* Metformin 500 MG TABLET PO SCH ×3 (09:06→17:07)
[2019-09-23] MEDS: Ringers Solution, Lactated 1,000 ML IVC SCH ×2 (09:06→14:04)
[2019-09-23] MEDS: Aspirin Enteric Coated 81 MG Tablet PO SCH (09:06)
[2019-09-23] MEDS: *HR* Glimepiride 4 MG TABLET PO SCH (09:07)
[2019-09-23 11:26] LABS: Basophils % 0.2 %; Hematocrit 28.3 % (35.3-44.9); Immature Granulocytes % 0.3 % (0-4); Lymphocytes # 0.5 K/mcL (0.6-4.6); Lymphocytes % 8.1 %; Mean Corpuscular HGB Conc 33.6 g/dL (31.6-35.5); Mean Corpuscular Hemoglobin 31.4 pg (28.0-33.3); Mean Corpuscular Volume 93.4 fL (83.0-100.0); Monocytes # 0.7 K/mcL (0.0-1.3); Monocytes % 10.9 %; Neutrophils # 5.3 K/mcL (1.6-8.9); Red Blood Count 3.03 M/mcL (3.82-4.97); Red Cell Distribution Width 13.1 % (11.5-14.5); Segmented Neutrophils % 80.5 %
[2019-09-23 11:29] LABS: Hemoglobin 9.5 g/dL (11.5-15.4); White Blood Count 6.6 K/mcL (4.3-11.1)
[2019-09-23 11:30] LABS: Platelet Count 79 K/mcL (140-400)
[2019-09-23] MEDS ORDERED: Dextrose Gel 15 GM/37.5 ML TUBE PO PRN ×2 (13:41)
[2019-09-23] MEDS ORDERED: *HR* Dextrose 50 % in Water (Syg) 50 ML SYRINGE IVP PRN (13:41)
[2019-09-23] MEDS ORDERED: D5% in Water 1,000 ML IVC PRN (13:41)
[2019-09-23] MEDS: Insulin LISPRO 300 UNITS/3 ML VIAL SQ SCH ×3 (14:02→21:12)
[2019-09-24] MEDS: Insulin LISPRO 300 UNITS/3 ML VIAL SQ SCH ×6 (00:32→22:13)
[2019-09-24] MEDS: *HR* OxyCODONE Immed Rel 5 MG TABLET PO PRN ×3 (06:13→17:31)
[2019-09-24] MEDS: Ringers Solution, Lactated 1,000 ML IVC SCH (06:16)
[2019-09-24 06:44] LABS: Basophils % 0.4 %; Hemoglobin 9.1 g/dL (11.5-15.4); Red Cell Distribution Width 13.4 % (11.5-14.5)
[2019-09-24 06:45] LABS: Eosinophils # 0.1 K/mcL (0.0-0.6); Eosinophils % 1.5 %; Hematocrit 26.4 % (35.3-44.9); Immature Granulocytes % 0.3 % (0-4); Immature Platelets 6.4 % (1.1-6.1); Lymphocytes # 1.2 K/mcL (0.6-4.6); Lymphocytes % 18.4 %; Mean Corpuscular HGB Conc 34.5 g/dL (31.6-35.5); Mean Corpuscular Hemoglobin 30.7 pg (28.0-33.3); Mean Corpuscular Volume 89.2 fL (83.0-100.0); Mean Platelet Volume 11.8 fL (9.4-12.4); Monocytes # 0.8 K/mcL (0.0-1.3); Monocytes % 12.3 %; Neutrophils # 4.5 K/mcL (1.6-8.9); Red Blood Count 2.96 M/mcL (3.82-4.97); Segmented Neutrophils % 67.1 %; White Blood Count 6.7 K/mcL (4.3-11.1)
[2019-09-24 06:46] LABS: Platelet Count 68 K/mcL (140-400)
[2019-09-24 07:04] LABS: BUN/Creatinine Ratio 37 (6-26); Blood Urea Nitrogen 30 mg/dL (8-23); Calcium 8.5 mg/dL (8.6-10.3); Carbon Dioxide 26 mEq/L (23-29); Chloride 102 mEq/L (98-107); Glucose 195 mg/dL (70-105); Osmolality,Calculated 294 (280-300); Potassium 4.3 mEq/L (3.5-5.1); Sodium 136 mEq/L (136-145); eGFR For African Americans > 60 (> 60); eGFR For Non-African Americans > 60 (> 60)
[2019-09-24] MEDS: Budesonide/Formoterol 160/4.5 1 PUFF INH IH SCH ×2 (07:43→20:37)
[2019-09-24] MEDS: Aspirin Enteric Coated 81 MG Tablet PO SCH (07:57)
[2019-09-24] MEDS: *HR* Metformin 500 MG TABLET PO SCH ×3 (07:57→17:31)
[2019-09-24] MEDS: *HR* Glimepiride 4 MG TABLET PO SCH (07:57)
[2019-09-24] MEDS: Gabapentin 300 MG CAPSULE PO SCH ×2 (13:41→20:24)
[2019-09-25] MEDS: *HR* OxyCODONE Immed Rel 5 MG TABLET PO PRN ×3 (00:30→19:35)
[2019-09-25] MEDS: Insulin LISPRO 300 UNITS/3 ML VIAL SQ SCH ×5 (04:35→21:52)
[2019-09-25] MEDS: Budesonide/Formoterol 160/4.5 1 PUFF INH IH SCH ×2 (08:04→20:41)
[2019-09-25] MEDS: Gabapentin 300 MG CAPSULE PO SCH ×3 (08:44→21:51)
[2019-09-25] MEDS: *HR* Glimepiride 4 MG TABLET PO SCH (08:44)
[2019-09-25] MEDS: *HR* Metformin 500 MG TABLET PO SCH ×3 (08:45→17:48)
[2019-09-25] MEDS: Aspirin Enteric Coated 81 MG Tablet PO SCH (08:45)
[2019-09-25] MEDS ORDERED: D5% in Water 1,000 ML IVC PRN (11:35)
[2019-09-25] MEDS ORDERED: Dextrose Gel 15 GM/37.5 ML TUBE PO PRN ×2 (11:35)
[2019-09-25] MEDS ORDERED: *HR* Dextrose 50 % in Water (Syg) 50 ML SYRINGE IVP PRN (11:35)
[2019-09-25 11:40] LABS: Hematocrit 25.5 % (35.3-44.9); Hemoglobin 8.7 g/dL (11.5-15.4); Immature Platelets 6.6 % (1.1-6.1); Mean Corpuscular HGB Conc 34.1 g/dL (31.6-35.5); Mean Corpuscular Hemoglobin 31.2 pg (28.0-33.3); Mean Corpuscular Volume 91.4 fL (83.0-100.0); Mean Platelet Volume 11.7 fL (9.4-12.4); Red Blood Count 2.79 M/mcL (3.82-4.97); Red Cell Distribution Width 13.3 % (11.5-14.5); White Blood Count 4.7 K/mcL (4.3-11.1)
[2019-09-25 12:00] LABS: BUN/Creatinine Ratio 29 (6-26); Blood Urea Nitrogen 22 mg/dL (8-23); Calcium 8.9 mg/dL (8.6-10.3); Carbon Dioxide 29 mEq/L (23-29); Chloride 101 mEq/L (98-107); Glucose 185 mg/dL (70-105); Osmolality,Calculated 290 (280-300); Sodium 136 mEq/L (136-145); eGFR For African Americans > 60 (> 60); eGFR For Non-African Americans > 60 (> 60)
[2019-09-26] MEDS: *HR* OxyCODONE Immed Rel 5 MG TABLET PO PRN ×4 (03:58→23:23)
[2019-09-26 04:23] LABS: Immature Granulocytes % 0.6 % (0-4)
[2019-09-26 04:25] LABS: Basophils % 0.9 %; Eosinophils # 0.1 K/mcL (0.0-0.6); Eosinophils % 3.5 %; Hematocrit 24.4 % (35.3-44.9); Hemoglobin 8.3 g/dL (11.5-15.4); Immature Platelets 5.9 % (1.1-6.1); Lymphocytes % 28.4 %; Mean Corpuscular Hemoglobin 31.2 pg (28.0-33.3); Mean Corpuscular Volume 91.7 fL (83.0-100.0); Mean Platelet Volume 11.7 fL (9.4-12.4); Monocytes # 0.5 K/mcL (0.0-1.3); Monocytes % 13.2 %; Neutrophils # 1.8 K/mcL (1.6-8.9); Red Blood Count 2.66 M/mcL (3.82-4.97); Red Cell Distribution Width 13.4 % (11.5-14.5); Segmented Neutrophils % 53.4 %; White Blood Count 3.4 K/mcL (4.3-11.1)
[2019-09-26 04:26] LABS: Platelet Count 58 K/mcL (140-400)
[2019-09-26 04:38] LABS: BUN/Creatinine Ratio 38 (6-26); Blood Urea Nitrogen 24 mg/dL (8-23); Calcium 8.6 mg/dL (8.6-10.3); Carbon Dioxide 27 mEq/L (23-29); Chloride 103 mEq/L (98-107); Glucose 139 mg/dL (70-105); Osmolality,Calculated 290 (280-300); Potassium 4.1 mEq/L (3.5-5.1); Sodium 137 mEq/L (136-145); eGFR For African Americans > 60 (> 60); eGFR For Non-African Americans > 60 (> 60)
[2019-09-26] MEDS: Budesonide/Formoterol 160/4.5 1 PUFF INH IH SCH ×2 (08:03→20:02)
[2019-09-26] MEDS: Gabapentin 300 MG CAPSULE PO SCH ×3 (09:36→21:02)
[2019-09-26] MEDS: *HR* Metformin 500 MG TABLET PO SCH ×3 (09:36→16:22)
[2019-09-26] MEDS: Insulin LISPRO 300 UNITS/3 ML VIAL SQ SCH ×4 (09:37→21:05)
[2019-09-26] MEDS: Aspirin Enteric Coated 81 MG Tablet PO SCH (09:37)
[2019-09-26] MEDS: *HR* Glimepiride 4 MG TABLET PO SCH (09:37)
[2019-09-27 04:09] LABS: Basophils % 0.9 %; Immature Granulocytes % 0.6 % (0-4)
[2019-09-27 04:11] LABS: Eosinophils # 0.1 K/mcL (0.0-0.6); Eosinophils % 3.4 %; Hematocrit 24.2 % (35.3-44.9); Hemoglobin 8.3 g/dL (11.5-15.4); Immature Platelets 7.8 % (1.1-6.1); Lymphocytes # 0.9 K/mcL (0.6-4.6); Lymphocytes % 29.1 %; Mean Corpuscular HGB Conc 34.3 g/dL (31.6-35.5); Mean Corpuscular Hemoglobin 31.8 pg (28.0-33.3); Mean Corpuscular Volume 92.7 fL (83.0-100.0); Mean Platelet Volume 12.1 fL (9.4-12.4); Monocytes # 0.4 K/mcL (0.0-1.3); Neutrophils # 1.7 K/mcL (1.6-8.9); Red Blood Count 2.61 M/mcL (3.82-4.97); Red Cell Distribution Width 13.5 % (11.5-14.5); White Blood Count 3.2 K/mcL (4.3-11.1)
[2019-09-27 04:17] LABS: Platelet Count 62 K/mcL (140-400)
[2019-09-27] MEDS: Budesonide/Formoterol 160/4.5 1 PUFF INH IH SCH (07:59)
[2019-09-27] MEDS: Insulin LISPRO 300 UNITS/3 ML VIAL SQ SCH ×2 (09:10→12:46)
[2019-09-27] MEDS: Gabapentin 300 MG CAPSULE PO SCH (09:11)
[2019-09-27] MEDS: *HR* Glimepiride 4 MG TABLET PO SCH (09:11)
[2019-09-27] MEDS: *HR* Metformin 500 MG TABLET PO SCH ×2 (09:12→11:10)
[2019-09-27 10:22] VITALS: BP 116/67
[2019-09-27] MEDS: *HR* OxyCODONE Immed Rel 5 MG TABLET PO PRN (11:10)
== END 2019-09-27 14:59 | disposition home or self-care (01) | DRG 362 ==
LOC: SAMDAY 09:00 → 3ANU 18:13
PROVIDERS: ADMIT Surgery; ATTEND Surgery

== ENCOUNTER 2020-11-12 12:43 | Observation (INO) ==
[2020-11-12] MEDS ORDERED: Isovue-370 500 ML BOTTLE IVP ONE (13:21)
[2020-11-12 13:50] LABS: Bilirubin,Urine Negative (Negative); Blood,Urine Negative (Negative); Clarity,Urine Clear (Clear); Color,Urine Light-Yellow (Yellow); Glucose,Urine (UA) >=1000 mg/dL (Normal); Ketones,Urine Negative (Negative); Leukocyte Esterase,Urine Negative (Negative); Mucus,Urine Few per lpf (None-Few); Nitrite,Urine Negative (Negative); PH,Urine 5.5 pH Units (5.0-8.0); Protein,Urine Negative (Neg-Trace); RBC,Urine 0-3 per hpf (0-3); Specific Gravity,Urine 1.009 (1.010-1.025); Squamous Epithelial Cell,Urine Few per hpf (None-Few); Urobilinogen,Urine Normal (Normal); WBC,Urine 0-3 per hpf (0-3)
[2020-11-12 13:57] LABS: Basophils % 0.9 %; Eosinophils % 4.2 %; Immature Granulocytes % 0.5 % (0-4)
[2020-11-12 13:59] LABS: Eosinophils # 0.1 K/mcL (0.0-0.6); Hematocrit 31.5 % (35.3-44.9); Hemoglobin 10.4 g/dL (11.5-15.4); Lymphocytes # 0.3 K/mcL (0.6-4.6); Lymphocytes % 14.2 %; Mean Corpuscular Hemoglobin 31.1 pg (28.0-33.3); Mean Corpuscular Volume 94.3 fL (83.0-100.0); Mean Platelet Volume 11.6 fL (9.4-12.4); Monocytes # 0.2 K/mcL (0.0-1.3); Monocytes % 9.4 %; Neutrophils # 1.5 K/mcL (1.6-8.9); Red Blood Count 3.34 M/mcL (3.82-4.97); Red Cell Distribution Width 12.7 % (11.5-14.5); Segmented Neutrophils % 70.8 %; White Blood Count 2.1 K/mcL (4.3-11.1)
[2020-11-12 14:01] LABS: Platelet Count 50 K/mcL (140-400)
[2020-11-12 14:14] LABS: BUN/Creatinine Ratio 18 (6-26); Blood Urea Nitrogen 16 mg/dL (8-23); Calcium 9.4 mg/dL (8.6-10.3); Carbon Dioxide 26 mEq/L (23-29); Chloride 104 mEq/L (98-107); Glucose 262 mg/dL (70-105); Magnesium 1.8 mg/dL (1.6-2.6); Osmolality,Calculated 296 (280-300); Phosphorous 3.3 mg/dL (2.7-4.5); Sodium 138 mEq/L (136-145); eGFR For African Americans > 60 (> 60); eGFR For Non-African Americans > 60 (> 60)
[2020-11-12] MEDS ORDERED: Acetaminophen 325 MG TABLET PO PRN (16:55)
[2020-11-12] MEDS ORDERED: Ondansetron 4 MG/2 ML VIAL IVP PRN (16:55)
[2020-11-12] MEDS ORDERED: Naloxone 0.4 MG/ML INJ IVP PRN (16:55)
[2020-11-12] MEDS ORDERED: Dextrose Gel 15 GM/37.5 ML TUBE PO PRN ×2 (17:06)
[2020-11-12] MEDS ORDERED: D5% in Water 1,000 ML IVC PRN (17:06)
[2020-11-12] MEDS ORDERED: *HR* Dextrose 50 % in Water (Vial) 50 ML VIAL IVP PRN (17:06)
[2020-11-12 18:06] LABS: INR 1.1; Prothrombin Time 12.9 Seconds (9.4-12.1)
[2020-11-12 18:09] LABS: Activated Partial Thrombo Time 29.4 Seconds (26.0-36.0)
[2020-11-12] MEDS: Aspirin 81 MG TAB.CHEW PO SCH (18:20)
[2020-11-12] MEDS: 0.9 % Sodium Chloride 1,000 ML IVC SCH (18:20)
[2020-11-12] MEDS: Budesonide/Formoterol 160/4.5 1 PUFF INH IH SCH (19:37)
[2020-11-12] MEDS: *HR* OxyCODONE Immed Rel 5 MG TABLET PO PRN (20:10)
[2020-11-12] MEDS: Insulin LISPRO 300 UNITS/3 ML VIAL SUBQ SCH (23:35)
[2020-11-13 02:13] LABS: Hemoglobin 9.7 g/dL (11.5-15.4)
[2020-11-13 02:15] LABS: Hematocrit 29.2 % (35.3-44.9); Immature Platelets 8.6 % (1.1-6.1); Mean Corpuscular HGB Conc 33.2 g/dL (31.6-35.5); Mean Corpuscular Volume 93.3 fL (83.0-100.0); Mean Platelet Volume 11.7 fL (9.4-12.4); Red Blood Count 3.13 M/mcL (3.82-4.97); Red Cell Distribution Width 12.6 % (11.5-14.5)
[2020-11-13 02:36] LABS: BUN/Creatinine Ratio 17 (6-26); Blood Urea Nitrogen 13 mg/dL (8-23); Calcium 9.1 mg/dL (8.6-10.3); Carbon Dioxide 24 mEq/L (23-29); Chloride 107 mEq/L (98-107); Chol/HDL Ratio 3.4 (0-4.9); Cholesterol 151 mg/dL (< 200); Glucose 151 mg/dL (70-105); HDL Cholesterol 45 mg/dL (40-59); LDL Cholesterol,Calculated 82 mg/dL (< 100); Osmolality,Calculated 291 (280-300); Sodium 139 mEq/L (136-145); Triglycerides 118 mg/dL (< 150); eGFR For African Americans > 60 (> 60); eGFR For Non-African Americans > 60 (> 60)
[2020-11-13] MEDS: 0.9 % Sodium Chloride 1,000 ML IVC SCH (02:55)
[2020-11-13] MEDS: *HR* OxyCODONE Immed Rel 5 MG TABLET PO PRN ×3 (04:53→21:49)
[2020-11-13 07:33] LABS: Estimated Average Glucose 169 mg/dl; Hemoglobin A1C 7.5 %
[2020-11-13] MEDS: Aspirin 81 MG TAB.CHEW PO SCH (08:02)
[2020-11-13] MEDS: Budesonide/Formoterol 160/4.5 1 PUFF INH IH SCH ×2 (08:43→20:42)
[2020-11-13] MEDS: Insulin LISPRO 300 UNITS/3 ML VIAL SUBQ SCH ×4 (09:07→21:40)
[2020-11-13] MEDS ORDERED: Albuterol 2.5 MG/3 ML NEBULIZER IH PRN (09:13)
[2020-11-13] MEDS: Magnesium Oxide 400 MG TABLET PO SCH (21:39)
[2020-11-14 06:38] LABS: Basophils % 0.9 %
[2020-11-14 06:40] LABS: Eosinophils # 0.1 K/mcL (0.0-0.6); Eosinophils % 3.8 %; Hematocrit 29.1 % (35.3-44.9); Hemoglobin 9.5 g/dL (11.5-15.4); Immature Platelets 8.5 % (1.1-6.1); Lymphocytes # 0.5 K/mcL (0.6-4.6); Lymphocytes % 22.2 %; Mean Corpuscular HGB Conc 32.6 g/dL (31.6-35.5); Mean Corpuscular Hemoglobin 30.4 pg (28.0-33.3); Mean Corpuscular Volume 93.3 fL (83.0-100.0); Monocytes # 0.3 K/mcL (0.0-1.3); Neutrophils # 1.4 K/mcL (1.6-8.9); Red Blood Count 3.12 M/mcL (3.82-4.97); Red Cell Distribution Width 12.8 % (11.5-14.5); Segmented Neutrophils % 61.1 %; White Blood Count 2.3 K/mcL (4.3-11.1)
[2020-11-14 06:46] LABS: Platelet Count 48 K/mcL (140-400)
[2020-11-14 07:07] LABS: Alanine Aminotransferase 11 Units/L (7-52); Albumin 3.7 g/dL (3.5-5.7); Albumin/Globulin Ratio 1.5 (1.1-2.2); Alkaline Phosphatase 60 Units/L (34-104); Aspartate Amino Transferase 24 Units/L (13-39); BUN/Creatinine Ratio 17 (6-26); Bilirubin,Total 1.3 mg/dL (0.3-1.0); Blood Urea Nitrogen 12 mg/dL (8-23); Calcium 9.4 mg/dL (8.6-10.3); Carbon Dioxide 24 mEq/L (23-29); Chloride 107 mEq/L (98-107); Globulin 2.4 g/dL (2.4-3.5); Glucose 129 mg/dL (70-105); Magnesium 1.9 mg/dL (1.6-2.6); Osmolality,Calculated 289 (280-300); Sodium 139 mEq/L (136-145); Total Protein 6.1 g/dL (6.4-8.9); eGFR For African Americans > 60 (> 60); eGFR For Non-African Americans > 60 (> 60)
[2020-11-14] MEDS: Insulin LISPRO 300 UNITS/3 ML VIAL SUBQ SCH (07:50)
[2020-11-14] MEDS: Aspirin 81 MG TAB.CHEW PO SCH (08:00)
[2020-11-14] MEDS: Magnesium Oxide 400 MG TABLET PO SCH (08:00)
[2020-11-14] MEDS: *HR* OxyCODONE Immed Rel 5 MG TABLET PO PRN (08:01)
[2020-11-14] MEDS ORDERED: Ascorbic Acid 500 MG TABLET PO SCH (09:00)
[2020-11-14] MEDS ORDERED: Aspirin Enteric Coated 81 MG Tablet PO SCH (09:00)
[2020-11-14] MEDS ORDERED: Cholecalciferol (D-3) 1,000 UNIT (25MCG) TABLET PO SCH (09:00)
[2020-11-14] MEDS ORDERED: Cyanocobalamin (B-12) 1,000 MCG TABLET PO SCH (09:00)
[2020-11-14] MEDS ORDERED: Insulin DETEMIR 100 UNIT/ML X5UNITS SUBQ SCH (09:00)
[2020-11-14] MEDS ORDERED: Letrozole 2.5 MG TABLET PO SCH (09:00)
[2020-11-14] MEDS: Budesonide/Formoterol 160/4.5 1 PUFF INH IH SCH (09:19)
[2020-11-14 11:37] VITALS: BP 110/64
== END 2020-11-14 13:26 | disposition home or self-care (01) ==
LOC: EMEROOARM 12:43 → 3BNU 12:43 → SUATTDRO 16:59 → 3BNU 17:59
PROVIDERS: ADMIT Internal Medicine; ATTEND General Practice